=== PATIENT | male | born 1950 | race Caucasian/White ===

== ENCOUNTER → 2016-10-26 | Outpatient (CLI) | payer MEDICARE, OTHER | LOC: RAD 13:32 | PROVIDERS: ATTEND Specialist | DX: R22.1 Localized swelling, mass and lump, neck (principal); R91.1 Solitary pulmonary nodule | CPT/HCPCS: 70491; 71020 ==

== ENCOUNTER 2017-01-03 23:25 | Inpatient (IN) | payer MEDICARE, OTHER ==
[2017-01-04 00:10] LABS: VENOUS BLOOD BASE EXCESS 0.8 mmol/L; VENOUS BLOOD HCO3 25.7 mmol/L (20-32); VENOUS BLOOD PCO2 41.9 mmHg (35-63); VENOUS BLOOD PH 7.41 (7.30-7.42)
[2017-01-04] MEDS ORDERED: ACETAMINOPHEN 325 MG TABLET PO ONE (00:14)
[2017-01-04 00:19] LABS: PROTHROMBIN TIME 12.8 SEC (11.4-15.4)
[2017-01-04 00:24] LABS: ALANINE AMINOTRANSFERASE 51 U/L (21-72); ALBUMIN 4.8 g/dL (3.5-5.0); ALKALINE PHOSPHATASE 67 U/L (38-126); ANION GAP 15 (5-19); ASPARTATE AMINO TRANSFERASE 28 U/L (17-59); BILIRUBIN,TOTAL 0.7 mg/dL (0.2-1.3); BLOOD UREA NITROGEN 18 mg/dL (7-20); CALCIUM 10.4 mg/dL (8.4-10.2); CARBON DIOXIDE 24 mmol/L (22-30); CHLORIDE 105 mmol/L (98-107); CREATININE RESULT 1.02 mg/dL (0.52-1.25); GLUCOSE 184 mg/dL (75-110); SODIUM 144.2 mmol/L (137-145); TOTAL PROTEIN 8.1 g/dL (6.3-8.2)
[2017-01-04 00:25] LABS: ALCOHOL < 10 mg/dL (NONE DETECTED)
[2017-01-04] MEDS ORDERED: PIPERACILLIN/TAZOBACTAM 3.375 GM VIAL IV ONE (00:29)
[2017-01-04] MEDS ORDERED: METHYLPREDNISOLONE INJ 125 MG/2 ML SDV IV ONE (00:29)
[2017-01-04] MEDS ORDERED: VANCOMYCIN HCL INJ 1000 MG VIAL IV ONE (00:29)
--- NOTE | 2017-01-04 00:33 | ER Document Report ---
ED General - General Chief Complaint: Fever Stated Complaint: ALTERED MENTAL STATUS Time seen by provider: 00:01 Information source: Patient TRAVEL OUTSIDE OF THE [place] IN LAST 30 DAYS: No - HPI Notes: Patient with history of hypertension and diabetes presents to the emergency department with report of poison jairo exposure 10 days ago with significant skin rash, and he reports some worsening redness along the abdomen and the left leg. He started with fever today with some mild disorientation and generalized myalgias. He denies any cough, constipation, diarrhea, pharyngitis, earache, dysuria. Patient's recently had bronchitis, but the patient has not had any cough. Patient denies any headache. No chest pain or dyspnea. Patient is retired from healthcare profession, but does not have any history of MRSA previously. Patient denies any focal numbness or weakness, but was having trouble recalling some details upon arrival. - Related Data Allergies/Adverse Reactions: No Known Allergies Allergy (Verified 12/07/15 09:47) Past Medical History - General Information source: Patient - Social History Smoking Status: Current Every Day Smoker Family History: Reviewed & Not Pertinent Patient has suicidal ideation: No Patient has homicidal ideation: No - Past Medical History Cardiac Medical History: Reports: Hx Hypercholesterolemia, Hx Hypertension Endocrine Medical History: Reports: Hx Diabetes Mellitus Type 2 Renal/ Medical History: Denies: Hx Peritoneal Dialysis Psychiatric Medical History: Denies: Hx Depression - Immunizations Hx Diphtheria, Pertussis, Tetanus Vaccination: No Hx Pneumococcal Vaccination: 10/22/12 Review of Systems - Review of Systems Notes: REVIEW OF SYSTEMS: CONSTITUTIONAL : No weight loss EENT: Denies eye, ear, throat, or mouth pain or symptoms. Denies nasal or sinus congestion or discharge. Denies throat, tongue, or mouth swelling or difficulty swallowing. CARDIOVASCULAR: Denies chest pain. Denies palpitations or racing or irregular heart beat. Denies ankle edema. RESPIRATORY: Denies cough, cold, or chest congestion. Denies shortness of breath, difficulty breathing, or wheezing. GASTROINTESTINAL: Denies abdominal pain or distention. Denies nausea, vomiting , or diarrhea. Denies blood in vomitus, stools, or per rectum. Denies black, tarry stools. Denies constipation. GENITOURINARY: Denies difficulty urinating, painful urination, burning, frequency, blood in urine, or discharge. MUSCULOSKELETAL: Patient reports generalized myalgias. Denies joint pain or swelling. SKIN: Persistent rash that worsening for the last 10 days. HEMATOLOGIC : Denies easy bruising or bleeding. LYMPHATIC: Denies swollen, enlarged glands. NEUROLOGICAL: Denies passing out or loss of consciousness. Denies dizziness or lightheadedness. Denies headache. Denies weakness or paralysis or loss of use of either side. Denies problems with gait or speech. Denies sensory loss, numbness, or tingling. Denies seizures. PSYCHIATRIC: Denies anxiety or stress. Denies depression, suicidal ideation, or homicidal ideation. ALL OTHER SYSTEMS REVIEWED AND NEGATIVE. Dictation was performed using Rounds voice recognition software Physical Exam - Vital signs Vitals: Temp Pulse Resp BP Pulse Ox 99.8 F 129 H 16 189/101 H 93 01/03/17 23:35 01/03/17 23:35 01/03/17 23:35 01/03/17 23:35 01/03/17 23:35 - Notes Notes: PHYSICAL EXAMINATION: GENERAL: Well-appearing, well-nourished and in no acute distress. HEAD: Atraumatic, normocephalic. EYES: Pupils equal round and reactive to light, extraocular movements intact, sclera anicteric, conjunctiva are normal. ENT: Nares patent, oropharynx clear without exudates. Moist mucous membranes. NECK: Normal range of motion, supple without lymphadenopathy. No meningismus. LUNGS: Breath sounds clear to auscultation bilaterally and equal. No wheezes rales or rhonchi. HEART: Regular rhythm without murmurs. Rate 120. ABDOMEN: Soft, nontender, nondistended abdomen. No guarding, no rebound. No masses appreciated. Obese. Musculoskeletal: Normal range of motion, no pitting or edema. No cyanosis. NEUROLOGICAL: Cranial nerves grossly intact. Normal speech. Normal sensory, motor exams. Patient initially was somewhat confused on exam, as he knew the president but could not tell us which state he lived in a what the year was. PSYCH: Normal mood, normal affect. SKIN: Warm, Dry, normal turgor, patient has very obvious Toxicodendron dermatitis noted on the trunk and extremities. Patient has area of cellulitis noted on the abdominal region and possible cellulitis left leg, but there is no evidence for abscess or induration or subcutaneous emphysema or even tenderness in these locations. Distally patient is neurovascularly intact in the left lower extremity. Course - Re-evaluation Re-evalutation: 01/04/17 02:26 After Tylenol, the patient's temperature came down from 101.9 to 100.9. The patient was given IV fluid and after blood cultures patient was given vancomycin and Zosyn IV. Patient was given IV Solu-Medrol for Toxicodendron dermatitis. He denied any significant itching and was not given any Benadryl. Patient's pulse rate came down from a peak of 125 to 96 and his blood pressure improved to 146/73. Patient became more clear and alert and oriented. On repeat exam he could tell me the year, the president and his city and state. Patient's stated he was acting more coherent and alert. Patient and his are both in agreement with admission for further evaluation and management. No evidence for sepsis, but I am concerned for SIRS with patient's infection and mild elevation of lactic acid level to 2.2 and elevated white blood cell count. There is no clinical suggestion for abscess or significant diabetic complication or diabetic ketoacidosis or UTI or pneumonia or obvious cardiac ischemia or acute LA or meningitis. Discussion was undertaken with Dr. Toledo who agreed to accept the patient for admission and further evaluation to a inpatient telemetry bed. Critical care time not counting billable procedures is 38 minutes. 01/04/17 02:31 - Vital Signs Vital signs: Temp Pulse Resp BP Pulse Ox 100.9 F H 129 H 20 165/87 H 95 01/04/17 02:08 01/03/17 23:35 01/04/17 00:46 01/04/17 00:46 01/04/17 00:46 - Laboratory Result Diagrams: 01/03/17 23:55 01/03/17 23:55 Laboratory results interpreted by me: 01/03/17 01/03/17 01/03/17 23:54 23:55 23:55 WBC 23.6 H Seg Neuts % (Manual) 90 H Band Neutrophils % 2 L Lymphocytes % (Manual) 3 L Abs Neuts (Manual) 21.7 H Glucose 184 H POC Glucose 180 H Lactic Acid Calcium 10.4 H Urine Protein Urine Glucose (UA) Urine Blood 01/03/17 01/04/17 23:55 00:56 WBC Seg Neuts % (Manual) Band Neutrophils % Lymphocytes % (Manual) Abs Neuts (Manual) Glucose POC Glucose Lactic Acid 2.2 H Calcium Urine Protein 30 H Urine Glucose (UA) >=500 H Urine Blood SMALL H - Diagnostic Test Radiology reviewed: Reports reviewed - EKG Interpretation by Me EKG shows normal: Sinus rhythm Additional EKG results interpreted by me: 01/04/17 00:35 EKG as interpreted by me showed sinus tachycardia heart rate of 117. There is some lateral T-wave inversion in V6 and isolation. I cannot exclude ischemia. Patient does have minimal T-wave inversion also noted V1 and poor R-wave progression inferior Q waves in lead 3 and aVF, but this is unchanged from previous EKG reviewed from 12/08/15. There is no gross evidence for acute LA but I cannot exclude ischemia. Note the patient denies any chest pain. Discharge - Discharge Clinical Impression: Toxicodendron dermatitis Fever Qualifiers: Fever type: unspecified Qualified Code(s): R50.9 - Fever, unspecified Cellulitis Qualifiers: Site of cellulitis: trunk Site of cellulitis of trunk: abdominal wall Qualified Code(s): L03.311 - Cellulitis of abdominal wall Cellulitis of leg Qualifiers: Laterality: left Qualified Code(s): L03.116 - Cellulitis of left lower limb Condition: Stable Disposition: ADMITTED INPATIENT Admitting Provider: Hospitalist Unit Admitted: [facility]
[2017-01-04] MEDS ORDERED: NORMAL SALINE 1000 ML 1,000 ML IV ONE (00:34)
[2017-01-04 00:39] LABS: HEMATOCRIT 45.6 % (37.9-51.0); HEMOGLOBIN 15.4 g/dL (13.5-17.0); HGB HCT DIFFERENCE 0.6; MEAN CORPUSCULAR HEMOGLOBIN 31.6 pg (27.0-33.4); MEAN CORPUSCULAR HGB CONC 33.7 g/dL (32.0-36.0); MEAN CORPUSCULAR VOLUME 94 fl (80-97); RED BLOOD COUNT 4.87 10^6/uL (4.35-5.55); RED CELL DISTRIBUTION WIDTH 13.5 % (11.5-14.0); WHITE BLOOD COUNT 23.6 10^3/uL (4.0-10.5)
[2017-01-04 00:47] LABS: BAND NEUTROPHILS % (MANUAL) 2 % (3-5); BASOPHILS % (MANUAL) 0 % (0-2); EOSINOPHILS % (MANUAL) 2 % (0-6); LYMPHOCYTES % (MANUAL) 3 % (13-45); OVALOCYTES SLIGHT; POIKILOCYTOSIS SLIGHT; TOTAL CELLS COUNTED 100; TOXIC GRANULATION SLIGHT; TOXIC VACUOLATION PRESENT
[2017-01-04 01:55] LABS: APPEARANCE,URINE CLEAR; BILIRUBIN,URINE NEGATIVE (NEGATIVE); GLUCOSE, URINE >=500 mg/dL (NEGATIVE); KETONES,URINE NEGATIVE (NEGATIVE); LEUKOCYTE ESTERASE,URINE NEGATIVE (NEGATIVE); NITRITE,URINE NEGATIVE (NEGATIVE); PROTEIN,URINE 30 mg/dL (NEGATIVE); URINE SPECIFIC GRAVITY 1.029; UROBILINOGEN,URINE NEGATIVE mg/dL (<2.0)
[2017-01-04 01:57] LABS: URINE BARBITURATES SCREEN NEGATIVE; URINE METHADONE SCREEN NEGATIVE; URINE OPIATES LOW NEGATIVE; URINE PHENCYCLIDINE SCREEN NEGATIVE
[2017-01-04] MEDS ORDERED: ACETAMINOPHEN 325 MG TABLET PO PRN (02:27)
[2017-01-04] MEDS ORDERED: ONDANSETRON HCL INJ/PF 4 MG/2 ML SDV IV PRN (02:27)
[2017-01-04] MEDS ORDERED: DEXTROSE 50%-WATER 25 GM/50 ML DISP.SYRIN IV PRN ×2 (02:27)
[2017-01-04] MEDS ORDERED: DEXTROSE 40% GEL 15 GM TUBE PO PRN ×2 (02:27)
[2017-01-04] MEDS ORDERED: MAGNESIUM HYDROXIDE SUSP 30 ML UDCUP PO PRN (02:27)
[2017-01-04] MEDS ORDERED: GLUCAGON,HUMAN RECOMB 1 MG INJ IM PRN (02:27)
[2017-01-04] MEDS ORDERED: IPRATROPIUM/ALBUTEROL 0.5-2.5 MG/3 ML AMPUL NEB PRN (02:27)
[2017-01-04] MEDS ORDERED: ASPIRIN 325 MG TABLET, ENT COATED PO SCH (02:30)
[2017-01-04] MEDS ORDERED: ATORVASTATIN CALCIUM 40 MG TABLET PO SCH (02:30)
[2017-01-04] MEDS ORDERED: NORMAL SALINE 1000 ML 1,000 ML IV SCH (02:30)
[2017-01-04] MEDS ORDERED: INSULIN LISPRO 100 UNIT/ML 3 ML VIAL SUBCUT ONE (03:00)
[2017-01-04] MEDS ORDERED: CLONIDINE HCL 0.2 MG TABLET PO ONE ×2 (03:00→05:30)
[2017-01-04] MEDS ORDERED: ASPIRIN 325 MG TABLET, ENT COATED PO ONE ×2 (03:00→05:30)
[2017-01-04] MEDS ORDERED: ATORVASTATIN CALCIUM 40 MG TABLET PO ONE ×2 (03:00→05:30)
[2017-01-04] MEDS ORDERED: VANCOMYCIN HCL 0 MG in DEXTROSE 5%-WATER 250 ML IV NR (03:45)
[2017-01-04] MEDS ORDERED: PIPERACILLIN/TAZOBACTAM 4.5 GM VIAL IV PRN (04:16)
[2017-01-04] MEDS ORDERED: VANCOMYCIN HCL INJ 1000 MG VIAL IV PRN (04:37)
[2017-01-04] MEDS ORDERED: VANCOMYCIN HCL 1,750 MG in DEXTROSE 5%-WATER 500 ML IV ONE (05:00)
[2017-01-04 05:10] LABS: ANION GAP 14 (5-19); BLOOD UREA NITROGEN 18 mg/dL (7-20); CALCIUM 9.8 mg/dL (8.4-10.2); CARBON DIOXIDE 20 mmol/L (22-30); CHLORIDE 106 mmol/L (98-107); CREATINE KINASE 177 U/L (55-170); CREATININE RESULT 0.93 mg/dL (0.52-1.25); GLUCOSE 219 mg/dL (75-110); SODIUM 139.6 mmol/L (137-145)
[2017-01-04 05:20] LABS: CREATINE KINASE MB 1.85 ng/mL (<4.55); TROPONIN I 0.028 ng/mL
[2017-01-04 05:23] LABS: HEMOGLOBIN 14.9 g/dL (13.5-17.0); HGB HCT DIFFERENCE -0.3; MEAN CORPUSCULAR HEMOGLOBIN 31.1 pg (27.0-33.4); MEAN CORPUSCULAR HGB CONC 33.1 g/dL (32.0-36.0); MEAN CORPUSCULAR VOLUME 94 fl (80-97); RED BLOOD COUNT 4.79 10^6/uL (4.35-5.55); RED CELL DISTRIBUTION WIDTH 13.6 % (11.5-14.0); WHITE BLOOD COUNT 22.5 10^3/uL (4.0-10.5)
[2017-01-04 05:25] LABS: BAND NEUTROPHILS % (MANUAL) 2 % (3-5); BASOPHILS % (MANUAL) 0 % (0-2); EOSINOPHILS % (MANUAL) 0 % (0-6); LYMPHOCYTES % (MANUAL) 7 % (13-45); TOTAL CELLS COUNTED 100
[2017-01-04 05:28] LABS: POLYCHROMASIA SLIGHT; TEAR DROP CELLS SLIGHT; TOXIC GRANULATION SLIGHT; TOXIC VACUOLATION PRESENT
[2017-01-04] MEDS: PIPERACILLIN SODIUM/TAZOBACTAM 4.5 GM in NORMAL SALINE 100 ML IV SCH ×3 (05:45→17:07)
[2017-01-04] MEDS ORDERED: CLONIDINE HCL 0.2 MG TABLET PO SCH (06:00)
[2017-01-04] MEDS ORDERED: HEPARIN SOD (PORCINE) 5,000 UNIT/ML 1 ML SYRINGE SUBCUT SCH (06:00)
--- NOTE | 2017-01-04 06:30 | PDOC H&P ---
History of Present Illness Admission Date/PCP: 01/04/17 02:28 SHANIQUE CAMARA DO Patient complains of: Fever and altered mental status History of Present Illness: CLEMENTE BROTHERS is a 66 year old male with a past medical history of moderate diastolic heart failure, moderate aortic regurgitation, diabetes, hypertension, Morbid obesity, obstructive sleep apnea and prostate cancer. Who gives a history of possible poison jairo exposure with painful rash approximately 10 days ago which initially involved his left leg but now involves all 4 extremities, abdominal wall, chest and groin, he sought treatment with primary care and was prescribed an unknown topical medication and hydroxyzine without improvement and over the last 6 hours has developed marketed fever of 103.0, myalgia and confusion. He remains somewhat confused his is at bedside and provides history. Including doubts overexposure to poison jairo as she was in the same area without development of rash. Patient denies another exposure to irritant or previous episode nor new medication prior to onset. He otherwise complains of abdominal pain and distention and denies headache nausea vomiting or stiff neck or photophobia. Past Medical History Cardiac Medical History: Reports: Congestive Heart Failure - Diastolic, Hyperlipidema, Hypertension Pulmonary Medical History: Reports: Sleep Apnea EENT Medical History: Reports: None Neurological Medical History: Reports: None Endocrine Medical History: Reports: Diabetes Mellitus Type 2, Obesity Renal/ Medical History: Reports: None Malignancy Medical History: Reports: Other - Prostate cancer GI Medical History: Reports: None Musculoskeltal Medical History: Reports: None Skin Medical History: Reports: None Psychiatric Medical History: Reports: None Denies: Depression Traumatic Medical History: Reports: None Hematology: Reports: None Infectious Medical History: Reports: None Past Surgical History Past Surgical History: Reports: Other - Radical prostatectomy approximately 5 years ago Social History Information Source: Patient, Relative Lives with: Spouse/Significant other Smoking Status: Current Every Day Smoker Cigars Per Day: 1 Frequency of Alcohol Use: None Hx Recreational Drug Use: No Hx Prescription Drug Abuse: No - Advance Directive Resuscitation Status: Full Code Family History Family History: CAD, DM, Malignancy - Breast cancer in mother Parental Family History Reviewed: Yes Children Family History Reviewed: Yes Sibling(s) Family History Reviewed.: Yes Medication/Allergy Home Medications: Carvedilol [Coreg 25 mg Tablet] 25 tab PO Q12 12/07/15 Atorvastatin Calcium [Lipitor 80 mg Tablet] 40 mg PO QHS tablet 12/08/15 Aspirin [Aspirin EC] 81 mg PO DAILY 01/04/17 Canagliflozin/Metformin HCl [Invokamet 150-1,000 mg Tablet] 1 tab PO BID Ferrous Sulfate 324 mg PO DAILY 01/04/17 Ginkgo Biloba 120 mg PO DAILY 01/04/17 Hydroxyzine HCl [Hydroxyzine HCl] 25 mg PO QIDP PRN 01/04/17 Insulin Glargine,Hum.rec.anlog [Lantus Insulin 100 Unit/1 ml 10 ml] 40 unit SUBCUT QAM 01/04/17 Mirabegron [Myrbetriq] 25 mg PO DAILY 01/04/17 Sitagliptin Phosphate [Januvia] 100 mg PO DAILY 01/04/17 Spironolactone [Spironolactone] 25 mg PO DAILY 01/04/17 Triamcinolone Acetonide [Aristocort 0.1% Cream 15 gm] 1 applic TP BID PRN Valsartan [Valsartan] 320 mg PO DAILY 01/04/17 Allergies/Adverse Reactions: No Known Allergies Allergy (Verified 12/07/15 09:47) Review of Systems Constitutional: PRESENT: as per HPI, fatigue, fever(s), night sweats, weakness. ABSENT: headache(s) Eyes: ABSENT: visual disturbances Ears: ABSENT: hearing changes Cardiovascular: ABSENT: chest pain, dyspnea on exertion, edema, orthropnea, palpitations Respiratory: ABSENT: cough, hemoptysis, sputum Gastrointestinal: PRESENT: abdominal pain, bloating, constipation, heartburn, nausea. ABSENT: coffee ground emesis, diarrhea, dysphagia, hematemesis, hematochezia, vomiting Genitourinary: ABSENT: dysuria, hematuria Musculoskeletal: ABSENT: joint swelling Integumentary: PRESENT: erythema, lesions, pruritus, rash Neurological: ABSENT: abnormal gait, abnormal speech, confusion, dizziness, focal weakness, syncope Psychiatric: ABSENT: anxiety, depression, homidical ideation, suicidal ideation Endocrine: ABSENT: cold intolerance, heat intolerance, polydipsia, polyuria Hematologic/Lymphatic: ABSENT: easy bleeding, easy bruising Allergic/Immunologic: PRESENT: as per HPI Physical Exam Vital Signs: Temp Pulse Resp BP Pulse Ox 100.9 F H 129 H 20 168/87 H 96 01/04/17 02:08 01/03/17 23:35 01/04/17 03:31 01/04/17 03:31 01/04/17 03:31 General appearance: PRESENT: cooperative, disheveled, mild distress, morbidly obese Head exam: PRESENT: atraumatic, normocephalic Eye exam: PRESENT: conjunctiva pink, EOMI, PERRLA. ABSENT: scleral icterus Ear exam: PRESENT: normal external ear exam Mouth exam: PRESENT: moist, tongue midline Neck exam: PRESENT: full ROM. ABSENT: carotid bruit, JVD, lymphadenopathy, meningismus, tenderness, thyromegaly, tracheal deviation Respiratory exam: PRESENT: clear to auscultation maryellen, symmetrical. ABSENT: rales, rhonchi, wheezes Cardiovascular exam: PRESENT: RRR, +S1, +S2, systolic murmur. ABSENT: diastolic murmur, rubs Pulses: PRESENT: normal dorsalis pedis pul GI/Abdominal exam: PRESENT: ascites, diminished bowel sounds, distended, hypoactive bowel sounds, soft, tenderness. ABSENT: guarding, hernia, Kelley's sign, rebound, rigid Rectal exam: PRESENT: deferred Extremities exam: PRESENT: tenderness. ABSENT: joint swelling, pedal edema, +1 edema Musculoskeletal exam: PRESENT: ambulatory, full ROM. ABSENT: deformity, dislocation Neurological exam: PRESENT: alert, altered, awake, oriented to person, CN II- XII grossly intact. ABSENT: oriented to place, oriented to time, oriented to situation, motor sensory deficit, aphasic Psychiatric exam: PRESENT: appropriate affect, normal mood. ABSENT: homicidal ideation, suicidal ideation Skin exam: PRESENT: erythema, intact, petechiae, rash, warm. ABSENT: vesicles Adult Front & Back Image: 1 - Tender papules and petechiae 2 - Tender papules and petechiae 3 - Tender papules and petechiae 4 - Tender papules and petechiae 5 - Tender papules and petechiae 6 - Eruptive seborrheic keratosis Results Laboratory Results: 01/04/17 04:20 01/04/17 04:20 01/04/17 01/04/17 01/04/17 04:20 04:20 04:20 WBC 22.5 H RBC 4.79 Hgb 14.9 Hct 45.0 MCV 94 MCH 31.1 MCHC 33.1 RDW 13.6 Plt Count 200 Seg Neutrophils % Not Reportable Lymphocytes % Not Reportable Monocytes % Not Reportable Eosinophils % Not Reportable Basophils % Not Reportable Absolute Neutrophils Not Reportable Absolute Lymphocytes Not Reportable Absolute Monocytes Not Reportable Absolute Eosinophils Not Reportable Absolute Basophils Not Reportable Sodium 139.6 Potassium 5.0 Chloride 106 Carbon Dioxide 20 L Anion Gap 14 BUN 18 Creatinine 0.93 Est GFR ( Amer) > 60 Est GFR (Non-Af Amer) > 60 Glucose 219 H Lactic Acid 2.4 H Calcium 9.8 01/04/17 01/04/17 04:20 04:20 Creatine Kinase 177 H CK-MB (CK-2) 1.85 Troponin I 0.028 Impressions: Chest X-Ray 01/04/17 00:26 IMPRESSION: No acute findings. Assessment & Plan - Diagnosis (1) Sweet's syndrome Is this a current diagnosis for this admission?: YesPlan: Possibly triggered by poison jairo exposure notable for painful acute acute rash with febrile neutrophilic presentation, concern for underlying malignancy given family history and tobacco dependence, will obtain a lap score and CT imaging of chest and abdomen for underlying solid malignancy. Will initiate systemic steroids following evaluation as abdominal wall cellulitis is in the differential. (2) Diabetes 1.5, managed as type 2 Is this a current diagnosis for this admission?: YesPlan: Home regiment with sliding scale insulin (3) Morbid obesity with BMI of 40.0-44.9, adult Is this a current diagnosis for this admission?: YesPlan: Obtain TSH and dietitian consult (4) Cellulitis Qualifiers: Site of cellulitis: trunk Site of cellulitis of trunk: abdominal wall Qualified Code(s): L03.311 - Cellulitis of abdominal wall Is this a current diagnosis for this admission?: YesPlan: Extensive areas of severe painful dermatitis suggestive of both Sweet's syndrome and cellulitis have replaced on vancomycin and Zosyn empirically with follow-up labs and culture (5) Altered mental status Qualifiers: Altered mental status type: unspecified Qualified Code(s): R41.82 - Altered mental status, unspecified Is this a current diagnosis for this admission?: YesPlan: Acute encephalopathy possibly secondary to febrile illness versus hypertensive urgency, Sweet syndrome versus concurrent hydroxyzine with Benadryl use (6) Hypertensive emergency Is this a current diagnosis for this admission?: YesPlan: Presenting with a blood pressure of 212/109 Likely related to pain versus acute febrile illness he'll receive symptomatic management Lopressor, VINCENT inhibitor, when necessary clonidine. (7) Hypercalcemia Is this a current diagnosis for this admission?: YesPlan: Unclear cause concerned for underlying malignancy, hydration and reevaluation of chemistry (8) Abdominal pain Qualifiers: Abdominal location: generalized Qualified Code(s): R10.84 - Generalized abdominal pain Is this a current diagnosis for this admission?: YesPlan: Abdominal distention noted over 2 months associated with diffuse pain, denying constipation, concern for underlying malignancy given hypercalcemia, tobacco, family history and presentation suggestive of Sweet syndrome. Symptomatically management and CT evaluation ordered - Time Time Spent: 50 to 70 Minutes
[2017-01-04] MEDS ORDERED: LACTULOSE SYRUP 20 GM/30 ML UDCUP PO ONE (06:45)
[2017-01-04] MEDS ORDERED: INFLUENZA ADLT QUAD (36MOS+) 2016-17 VAC 0.5 ML SYR IM PRN (08:10)
[2017-01-04] MEDS: DOCUSATE SODIUM 100 MG CAPSULE PO SCH ×2 (09:10→17:09)
[2017-01-04] MEDS: CARVEDILOL 12.5 MG TABLET PO SCH ×2 (09:10→22:12)
[2017-01-04] MEDS: METFORMIN HCL 500 MG TABLET PO SCH ×2 (09:10→16:07)
[2017-01-04] MEDS: ASPIRIN 325 MG TABLET, ENT COATED PO SCH (09:10)
[2017-01-04] MEDS: VALSARTAN 160 MG TABLET PO SCH (09:11)
--- NOTE | 2017-01-04 11:16 | EKG REPORT ---
SEVERITY:- ABNORMAL ECG - SINUS OR ECTOPIC ATRIAL TACHYCARDIA PROBABLE INFERIOR INFARCT, OLD ABNRM R PROG, CONSIDER ASMI OR LEAD PLACEMENT LATERAL LEADS ARE ALSO INVOLVED : Confirmed by: Benita Paul 04-Jan-2017 11:15:49
[2017-01-04] MEDS: INSULIN LISPRO 100 UNIT/ML 3 ML VIAL SUBCUT PRN ×2 (11:32→17:11)
[2017-01-04 11:48] LABS: CREATINE KINASE MB 2.35 ng/mL (<4.55); TROPONIN I 0.013 ng/mL
[2017-01-04] MEDS: VANCOMYCIN HCL 1,000 MG in DEXTROSE 5%-WATER 250 ML IV SCH ×2 (13:28→18:07)
[2017-01-04] MEDS ORDERED: (PENDING PHARMACY ID) (Mirabegron [Myrbetriq] 25 MG) PO SCH (16:00)
[2017-01-04] MEDS ORDERED: HYDRALAZINE HCL INJ/PF 20 MG/1 ML SDV IV PRN (18:14)
[2017-01-04] MEDS ORDERED: AMLODIPINE BESYLATE 5 MG TABLET PO ONE (18:30)
[2017-01-04 18:31] LABS: CREATINE KINASE MB 3.27 ng/mL (<4.55); TROPONIN I 0.013 ng/mL
[2017-01-04] MEDS ORDERED: CARVEDILOL 12.5 MG TABLET PO SCH (22:00)
[2017-01-04] MEDS ORDERED: CARVEDILOL PO SCH (22:00)
[2017-01-04] MEDS: AMLODIPINE BESYLATE 5 MG TABLET PO SCH (22:11)
[2017-01-04] MEDS: ATORVASTATIN CALCIUM 40 MG TABLET PO SCH (22:12)
[2017-01-05] MEDS: PIPERACILLIN SODIUM/TAZOBACTAM 4.5 GM in NORMAL SALINE 100 ML IV SCH ×4 (00:57→17:08)
[2017-01-05] MEDS: VANCOMYCIN HCL 1,000 MG in DEXTROSE 5%-WATER 250 ML IV SCH ×3 (03:38→20:19)
[2017-01-05 07:11] LABS: ABSOLUTE BASOPHILS # (AUTO) 0.1 10^3/uL (0.0-0.2); ABSOLUTE EOSINOPHILS # (AUTO) 0.9 10^3/uL (0.0-0.6); ABSOLUTE LYMPHOCYTES (AUTO) 3.7 10^3/uL (0.5-4.7); ABSOLUTE MONOCYTES (AUTO) 1.2 10^3/uL (0.1-1.4); ABSOLUTE NEUT (AUTO) 9.8 10^3/uL (1.7-8.2); BASOPHILS % (AUTO) 0.7 % (0-2); EOSINOPHILS % (AUTO) 5.5 % (0-6); LYMPHOCYTES % (AUTO) 23.4 % (13-45); MEAN CORPUSCULAR HEMOGLOBIN 31.6 pg (27.0-33.4); MEAN CORPUSCULAR HGB CONC 33.5 g/dL (32.0-36.0); MEAN CORPUSCULAR VOLUME 94 fl (80-97); MONOCYTES % (AUTO) 7.7 % (3-13); RED BLOOD COUNT 4.45 10^6/uL (4.35-5.55); RED CELL DISTRIBUTION WIDTH 13.9 % (11.5-14.0); SEGMENTED NEUTROPHILS % (AUTO) 62.7 % (42-78); WHITE BLOOD COUNT 15.6 10^3/uL (4.0-10.5)
[2017-01-05 07:36] LABS: ANION GAP 14 (5-19); BLOOD UREA NITROGEN 24 mg/dL (7-20); CALCIUM 9.6 mg/dL (8.4-10.2); CARBON DIOXIDE 22 mmol/L (22-30); CHLORIDE 103 mmol/L (98-107); CREATININE RESULT 0.97 mg/dL (0.52-1.25); GLUCOSE 155 mg/dL (75-110); POTASSIUM 4.4 mmol/L (3.6-5.0); SODIUM 139.3 mmol/L (137-145)
[2017-01-05] MEDS ORDERED: (PENDING PHARMACY ID) (Valsartan [Valsartan] 320 MG) PO SCH (10:00)
[2017-01-05] MEDS ORDERED: VALSARTAN 160 MG TABLET PO SCH (10:00)
[2017-01-05] MEDS ORDERED: (PENDING PHARMACY ID) (Ferrous Sulfate [Ferrous Sulfate] 324 MG) PO SCH (10:00)
[2017-01-05] MEDS ORDERED: (PENDING PHARMACY ID) (Clonidine Hcl [Catapres 0.3 Mg Tablet] 0.3 MG) PO SCH (10:00)
[2017-01-05] MEDS ORDERED: CLONIDINE HCL 0.2 MG PO SCH (10:00)
[2017-01-05] MEDS ORDERED: (PENDING PHARMACY ID) (Mirabegron [Myrbetriq] 25 MG) PO SCH (10:00)
[2017-01-05] MEDS: CARVEDILOL 12.5 MG TABLET PO SCH ×2 (10:22→21:57)
[2017-01-05] MEDS: VALSARTAN 160 MG TABLET PO SCH (10:24)
[2017-01-05] MEDS: METFORMIN HCL 500 MG TABLET PO SCH ×2 (10:24→17:07)
[2017-01-05] MEDS: PREDNISONE 20 MG TABLET PO SCH (10:24)
[2017-01-05] MEDS: FERROUS SULFATE 325 MG TABLET PO SCH (10:25)
[2017-01-05] MEDS: CLONIDINE HCL 0.2 MG TABLET PO SCH ×2 (10:25→21:57)
[2017-01-05] MEDS: ASPIRIN 325 MG TABLET, ENT COATED PO SCH (10:25)
[2017-01-05] MEDS: DOCUSATE SODIUM 100 MG CAPSULE PO SCH ×2 (10:25→17:08)
[2017-01-05] MEDS: AMLODIPINE BESYLATE 5 MG TABLET PO SCH ×2 (10:26→21:56)
--- NOTE | 2017-01-05 12:00 | PDOC PROGRESS REPORT ---
Subjective Progress Note for:: 01/05/17 Subjective:: Patient is feeling well ; he has no fever no chills no headache lightheadedness The expressive aphasia has improved He has no focal deficits otherwise and is ambulating freely The rash on his upper and lower extremities is still persistent Physical Exam Vital Signs: Temp Pulse Resp BP Pulse Ox 97.6 F 79 16 178/87 H 97 01/05/17 07:47 01/05/17 11:03 01/05/17 11:03 01/05/17 07:47 01/05/17 11:03 Intake & Output 01/04/17 01/05/17 01/06/17 00:59 00:59 00:59 Intake Total 1533 1370 Balance 1533 1370 Weight 112.4 kg 112.2 kg General appearance: PRESENT: no acute distress, well-developed, well-nourished Head exam: PRESENT: atraumatic, normocephalic Eye exam: PRESENT: conjunctiva pink, EOMI, PERRLA. ABSENT: scleral icterus Ear exam: PRESENT: normal external ear exam Mouth exam: PRESENT: moist, tongue midline Neck exam: ABSENT: carotid bruit, JVD, lymphadenopathy, thyromegaly Respiratory exam: PRESENT: clear to auscultation maryellen. ABSENT: rales, rhonchi, wheezes Cardiovascular exam: PRESENT: RRR. ABSENT: diastolic murmur, rubs, systolic murmur Pulses: PRESENT: normal dorsalis pedis pul Vascular exam: PRESENT: normal capillary refill GI/Abdominal exam: PRESENT: normal bowel sounds, soft. ABSENT: distended, guarding, mass, organolmegaly, rebound, tenderness Rectal exam: PRESENT: deferred Extremities exam: PRESENT: full ROM. ABSENT: calf tenderness, clubbing, pedal edema Neurological exam: PRESENT: alert, awake, oriented to person, oriented to place , oriented to time, oriented to situation, CN II-XII grossly intact. ABSENT: motor sensory deficit Psychiatric exam: PRESENT: appropriate affect, normal mood. ABSENT: homicidal ideation, suicidal ideation Skin exam: PRESENT: dry, intact, petechiae - Petechial rash over the both shins and antecubital areas upper extremities extending to the hand, warm. ABSENT: cyanosis, rash Results Laboratory Results: 01/05/17 06:16 01/05/17 06:16 01/04/17 01/05/17 01/05/17 11:07 06:16 06:16 WBC 15.6 H RBC 4.45 Hgb 14.0 Hct 42.0 MCV 94 MCH 31.6 MCHC 33.5 RDW 13.9 Plt Count 200 Seg Neutrophils % 62.7 Lymphocytes % 23.4 Monocytes % 7.7 Eosinophils % 5.5 Basophils % 0.7 Absolute Neutrophils 9.8 H Absolute Lymphocytes 3.7 Absolute Monocytes 1.2 Absolute Eosinophils 0.9 H Absolute Basophils 0.1 Sodium 139.3 Potassium 4.4 Chloride 103 Carbon Dioxide 22 Anion Gap 14 BUN 24 H Creatinine 0.97 Est GFR ( Amer) > 60 Est GFR (Non-Af Amer) > 60 Glucose 155 H Calcium 9.6 C-Reactive Protein 58.8 H 01/04/17 01/04/17 01/04/17 04:20 04:20 11:07 Creatine Kinase 177 H 156 CK-MB (CK-2) 1.85 Troponin I 0.028 01/04/17 01/04/17 01/04/17 11:07 17:50 17:50 Creatine Kinase 326 H CK-MB (CK-2) 2.35 3.27 Troponin I 0.013 0.013 Impressions: Abdomen/Pelvis CT 01/04/17 00:00 IMPRESSION: No acute or suspicious findings. 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 Stable extensive hemispheric white matter disease. Punctate focus of altered diffusion in the left posterior frontal white matter on diffusion image 23, likely a tiny acute infarct. Unremarkable [place] MRA Chest CT 01/04/17 00:00 IMPRESSION: No acute or suspicious findings. Chest X-Ray 01/04/17 00:26 IMPRESSION: No acute findings. Head CT 01/04/17 11:26 IMPRESSION: Extensive white matter disease No acute parenchymal hemorrhage. No CT evidence of acute large territory ischemic change. 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 Stable extensive hemispheric white matter disease. Punctate focus of altered diffusion in the left posterior frontal white matter on diffusion image 23, likely a tiny acute infarct. Unremarkable [place] MRA Assessment & Plan - Diagnosis (1) Leukocytosis Qualifiers: Leukocytosis type: unspecified Qualified Code(s): D72.829 - Elevated white blood cell count, unspecified Is this a current diagnosis for this admission?: YesPlan: Improvement of leukocytosis Leukocytosis may be secondary to Sirs Patient did have a fever and high lactic acid Source of infection is unknown Several blood cultures were drawn Patient is still on broad-spectrum antibiotic (2) CVA (cerebral vascular accident) Qualifiers: Laterality of affected vessel: unspecified Is this a current diagnosis for this admission?: YesPlan: MRI showed prompt punctate 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 Espinoza, and films were reviewed by neuroradiologist at [facility] Dr. Erik Valencia felt that these findings are likely to be related to uncontrolled hypertension rather than vasculitis (3) Vasculitis Is this a current diagnosis for this admission?: YesPlan: Vasculitis is suspected as patient came in fever purpuric rash, an MRI of the head suspicious for vasculitis We initiated a workup Prednisone 60 mg daily was prescribed (4) Expressive aphasia Is this a current diagnosis for this admission?: YesPlan: Has improved (5) Hypertensive emergency Is this a current diagnosis for this admission?: YesPlan: Patient does have accelerated hypertension We will resume his home meds, and we will try to maintain his blood pressure below 160 systolic - Time Time Spent with patient: Were planning to keep the patient in the hospital for another 2448 hrs. until blood pressure is stable, and results of the cultures are available Time Spent with patient: 25-34 minutes
[2017-01-05 12:12] LABS: ADD HIVPANEL? NO; HIV (1 AND 2) ANTIBODY NEGATIVE (NEGATIVE)
--- NOTE | 2017-01-05 17:04 | XCELERA REPORT ---
[address] [address] Transthoracic Echocardiogram Report Name: CLEMENTE BROTHERS Age: 66 yrs Gender: Male : 1950 Patient Status: Inpatient Patient Location: [id number]\S\329\S\A Study Date: 01/05/2017 02:41 PM Height: 66 in Weight: 247 lb BSA: 2.2 m2 Procedure: A complete two-dimensional transthoracic echocardiogram was performed (2D, M-mode, spectral and color flow Doppler). The study was technically adequate with some images being suboptimal in quality. Reason For Study: fever CVA R/O SBE Ordering Physician: OLIVER RAMSEY Performed By: Evangelista Cobb Interpretation Summary The left ventricular ejection fraction is normal. There is moderate concentric left ventricular hypertrophy. Doppler measurements suggest pseudonormalized left ventricular relaxation, which is associated with grade II/IV or mild to moderate diastolic dysfunction The left ventricle is grossly normal size. Wall motion cannot be accurately commented on, but no definite regional wall motion abnormalities noted. The right ventricle is grossly normal size. The right ventricular systolic function is normal. The right atrium is borderline dilated. The left atrium is moderately dilated. There is a trace to mild amount of mitral regurgitation There is no mitral valve stenosis. There is no aortic valve stenosis There is a mild amount of aortic regurgitation There is a trace to mild amount of tricuspid regurgitation There is mild pulmonary hypertension by echo Right ventricular systolic pressure is estimated to be elevated at 30- 40mmHg. The aortic root is not well visualized but is probably normal size. The inferior vena cava appeared dilated and decreased < 50% with respiration (RAP 15-20 mmHg) Small pericardial effusion. MMode/2D Measurements \T\ Calculations RVDd: 3.1 cm LVIDd: 4.9 cm FS: 44.0 % Ao root diam: 3.0 cm IVSd: 1.5 cm LVIDs: 2.7 cm EDV(Teich): 112.8 ml LVPWd: 1.6 cm ESV(Teich): 28.2 ml Ao root area: 7.0 cm2 EF(Teich): 75.0 % LA dimension: 4.3 cm Doppler Measurements \T\ Calculations MV E max luli: MV P1/2t max luli: Ao V2 max: AI max luli: 51.5 cm/sec 53.3 cm/sec 164.2 cm/sec 347.5 cm/sec MV A max luli: MV P1/2t: 58.7 msec Ao max PG: AI max P.4 cm/sec 10.8 mmHg 48.3 mmHg MV E/A: 0.55 MVA(P1/2t): 3.7 cm2 AI dec slope: MV dec slope: 265.7 cm/sec2 191.6 cm/sec2 AI P1/2t: 531.3 msec LV V1 max PG: PA V2 max: PI end-d luli: TR max luli: 6.0 mmHg 85.4 cm/sec 111.8 cm/sec 232.9 cm/sec LV V1 max: PA max P.9 mmHg TR max P.8 cm/sec 21.7 mmHg RVSP(TR): 31.7 mmHg RAP systole: 10.0 mmHg Left Ventricle The left ventricle is grossly normal size. There is moderate concentric left ventricular hypertrophy. The left ventricular ejection fraction is normal. Doppler measurements suggest pseudonormalized left ventricular relaxation, which is associated with grade II/IV or mild to moderate diastolic dysfunction. Wall motion cannot be accurately commented on, but no definite regional wall motion abnormalities noted. Right Ventricle The right ventricle is grossly normal size. There is normal right ventricular wall thickness. The right ventricular systolic function is normal. Atria The right atrium is borderline dilated. The left atrium is moderately dilated. Interarterial septum not well visualized and not well dopplered. Cannot comment on ASD/PFO presence. Mitral Valve The mitral valve is grossly normal. There is no mitral valve stenosis. There is a trace to mild amount of mitral regurgitation. Aortic Valve The aortic valve is mildly calcified. There is no aortic valve stenosis. There is a mild amount of aortic regurgitation. Tricuspid Valve The tricuspid valve is not well visualized, but is grossly normal. There is no tricuspid stenosis. There is a trace to mild amount of tricuspid regurgitation. There is mild pulmonary hypertension by echo. Right ventricular systolic pressure is estimated to be elevated at 30-40mmHg. Pulmonic Valve The pulmonic valve is not well visualized. Great Vessels The aortic root is not well visualized but is probably normal size. The inferior vena cava appeared dilated and decreased < 50% with respiration (RAP 15-20 mmHg). Effusions Small pericardial effusion. Incidental Findings No definite cardiac source of CVA/TIA noted on this particular trans- thoracic study. : OLIVER RAMSEY > Benita Paul
[2017-01-05] MEDS: INSULIN LISPRO 100 UNIT/ML 3 ML VIAL SUBCUT PRN ×2 (17:09→21:52)
[2017-01-05] MEDS: ATORVASTATIN CALCIUM 40 MG TABLET PO SCH (21:56)
[2017-01-06] MEDS: PIPERACILLIN SODIUM/TAZOBACTAM 4.5 GM in NORMAL SALINE 100 ML IV SCH ×3 (00:46→12:30)
[2017-01-06] MEDS: VANCOMYCIN HCL 1,000 MG in DEXTROSE 5%-WATER 250 ML IV SCH ×2 (03:18→10:50)
[2017-01-06 06:04] LABS: ABSOLUTE BASOPHILS # (AUTO) 0.1 10^3/uL (0.0-0.2); ABSOLUTE EOSINOPHILS # (AUTO) 0.6 10^3/uL (0.0-0.6); ABSOLUTE LYMPHOCYTES (AUTO) 3.3 10^3/uL (0.5-4.7); ABSOLUTE NEUT (AUTO) 8.1 10^3/uL (1.7-8.2); BASOPHILS % (AUTO) 0.4 % (0-2); EOSINOPHILS % (AUTO) 4.8 % (0-6); HEMATOCRIT 39.1 % (37.9-51.0); HEMOGLOBIN 13.3 g/dL (13.5-17.0); HGB HCT DIFFERENCE 0.8; LYMPHOCYTES % (AUTO) 25.5 % (13-45); MEAN CORPUSCULAR HEMOGLOBIN 31.7 pg (27.0-33.4); MEAN CORPUSCULAR HGB CONC 33.9 g/dL (32.0-36.0); MEAN CORPUSCULAR VOLUME 94 fl (80-97); MONOCYTES % (AUTO) 7.8 % (3-13); RED BLOOD COUNT 4.18 10^6/uL (4.35-5.55); RED CELL DISTRIBUTION WIDTH 13.5 % (11.5-14.0); SEGMENTED NEUTROPHILS % (AUTO) 61.5 % (42-78); WHITE BLOOD COUNT 13.1 10^3/uL (4.0-10.5)
[2017-01-06 06:23] LABS: ANION GAP 13 (5-19); BLOOD UREA NITROGEN 24 mg/dL (7-20); CALCIUM 9.4 mg/dL (8.4-10.2); CARBON DIOXIDE 23 mmol/L (22-30); CHLORIDE 102 mmol/L (98-107); CREATININE RESULT 0.91 mg/dL (0.52-1.25); GLUCOSE 171 mg/dL (75-110); POTASSIUM 4.4 mmol/L (3.6-5.0); SODIUM 138.3 mmol/L (137-145)
[2017-01-06 06:39] LABS: HEPATITIS C VIRUS AB <0.1 s/co ratio (0.0-0.9)
[2017-01-06] MEDS: FERROUS SULFATE 325 MG TABLET PO SCH (08:17)
[2017-01-06] MEDS: VALSARTAN 160 MG TABLET PO SCH (08:17)
[2017-01-06] MEDS: METFORMIN HCL 500 MG TABLET PO SCH (08:17)
[2017-01-06] MEDS: CLONIDINE HCL 0.2 MG TABLET PO SCH (08:18)
[2017-01-06] MEDS: ASPIRIN 325 MG TABLET, ENT COATED PO SCH (08:18)
[2017-01-06] MEDS: CARVEDILOL 12.5 MG TABLET PO SCH (08:18)
[2017-01-06] MEDS: DOCUSATE SODIUM 100 MG CAPSULE PO SCH (08:18)
[2017-01-06] MEDS: PREDNISONE 20 MG TABLET PO SCH (08:19)
[2017-01-06] MEDS: AMLODIPINE BESYLATE 5 MG TABLET PO SCH (08:19)
[2017-01-06] MEDS ORDERED: HYDRALAZINE HCL 50 MG TABLET PO ONE (12:00)
[2017-01-06 12:25] VITALS: BP 135/78
[2017-01-06] MEDS: INSULIN LISPRO 100 UNIT/ML 3 ML VIAL SUBCUT PRN (12:30)
--- NOTE | 2017-01-06 15:29 | PDOC DISCHARGE SUMMARY ---
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 Espinoza, and films were reviewed by neuroradiologist at [facility] Dr. Erik Valencia felt that these findings are likely to be related to uncontrolled hypertension rather than vasculitis (3) Vasculitis Is this a current diagnosis for this admission?: YesSummary: Patient had a petechial rash upper lower extremities non pruritic suggestive of vasculitis rash faded with steroids Patient was discharged on prednisone po (4) Expressive aphasia Is this a current diagnosis for this admission?: YesSummary: likely related to CVA has improved (5) Hypertensive emergency Is this a current diagnosis for this admission?: YesSummary: blood pressure was controlled at time of discharge we added Hydralazine 50 mg q12 to previous meds (6) Fever Is this a current diagnosis for this admission?: YesSummary: etiology unknown - resolved no focus of infection all blood cultures were negative Patient was initially treated with broad spectum antibiotics - Additional Information Resuscitation Status: Full Code Home Medications: Carvedilol [Coreg 25 mg Tablet] 25 tab PO Q12 12/07/15 Atorvastatin Calcium [Lipitor 80 mg Tablet] 40 mg PO QHS tablet 12/08/15 Aspirin [Aspirin EC] 81 mg PO DAILY 01/04/17 Canagliflozin/Metformin HCl [Invokamet 150-1,000 mg Tablet] 1 tab PO BID Clonidine HCl [Catapres 0.3 mg Tablet] 0.3 mg PO DAILY 01/04/17 Ferrous Sulfate 324 mg PO DAILY 01/04/17 Furosemide [Lasix] 40 mg PO DAILY 01/04/17 Ginkgo Biloba 120 mg PO DAILY 01/04/17 Hydroxyzine HCl 25 mg PO QIDP PRN 01/04/17 Insulin Glargine,Hum.rec.anlog [Lantus Insulin 100 Unit/1 ml 10 ml] 40 unit SUBCUT QAM 01/04/17 Mirabegron [Myrbetriq] 25 mg PO DAILY 01/04/17 Sitagliptin Phosphate [Januvia] 100 mg PO DAILY 01/04/17 Spironolactone 25 mg PO DAILY 01/04/17 Triamcinolone Acetonide [Aristocort 0.1% Cream] 1 applic TP BID PRN 01/04/17 Valsartan 320 mg PO DAILY 01/04/17 Clonidine HCl [Catapres 0.2 mg Tablet] 0.2 mg PO Q12 #60 tablet 01/06/17 Hydralazine HCl [Apresoline 50 mg Tablet] 50 mg PO Q12 #60 tablet 01/06/17 Prednisone [Deltasone 20 mg Tablet] 60 mg PO DAILY #60 tablet 01/06/17 History of Present Illness Patient complains of: rash and speech impairement History of Present Illness: CLEMENTE BROTHERS is a 66 year old male with a past medical history of moderate diastolic heart failure, moderate aortic regurgitation, diabetes, hypertension, Morbid obesity, obstructive sleep apnea and prostate cancer. Who gives a history of possible poison jairo exposure with painful rash approximately 10 days ago which initially involved his left leg but now involves all 4 extremities, abdominal wall, chest and groin, he sought treatment with primary care and was prescribed an unknown topical medication and hydroxyzine without improvement and over the last 6 hours has developed marketed fever of 103.0, myalgia and confusion. He remains somewhat confused his is at bedside and provides history. Including doubts overexposure to poison jairo as she was in the same area without development of rash. Patient denies another exposure to irritant or previous episode nor new medication prior to onset. He otherwise complains of abdominal pain and distention and denies headache nausea vomiting or stiff neck or photophobia. Speech impairement started 10 days prior to admission ; improved at time of admission speech is slow , hesitant A CT head performed in ED showed extensive white matter disease Patient was admitted to [facility] for further care Hospital Course Hospital Course: see above Physical Exam Vital Signs: Temp Pulse Resp BP Pulse Ox 97.3 F 79 16 135/78 H 99 01/06/17 12:08 01/06/17 14:00 01/06/17 12:08 01/06/17 12:08 01/06/17 12:08 Intake & Output 01/05/17 01/06/17 01/07/17 00:59 00:59 00:59 Intake Total 1533 2865 2180 Balance 1533 2865 2180 Weight 112.4 kg 112.2 kg 112.4 kg General appearance: PRESENT: no acute distress, well-developed, well-nourished Head exam: PRESENT: atraumatic, normocephalic Eye exam: PRESENT: conjunctiva pink, EOMI, PERRLA. ABSENT: scleral icterus Ear exam: PRESENT: normal external ear exam Mouth exam: PRESENT: moist, tongue midline Neck exam: ABSENT: carotid bruit, JVD, lymphadenopathy, thyromegaly Respiratory exam: PRESENT: clear to auscultation mary[place]. ABSENT: rales, rhonchi, wheezes Cardiovascular exam: PRESENT: RRR. ABSENT: diastolic murmur, rubs, systolic murmur Pulses: PRESENT: normal dorsalis pedis pul Vascular exam: PRESENT: normal capillary refill GI/Abdominal exam: PRESENT: normal bowel sounds, soft. ABSENT: distended, guarding, mass, organolmegaly, rebound, tenderness Rectal exam: PRESENT: deferred Extremities exam: PRESENT: full ROM. ABSENT: calf tenderness, clubbing, pedal edema Neurological exam: PRESENT: alert, awake, oriented to person, oriented to place , oriented to time, oriented to situation, CN II-XII grossly intact. ABSENT: motor sensory deficit Psychiatric exam: PRESENT: appropriate affect, normal mood. ABSENT: homicidal ideation, suicidal ideation Skin exam: PRESENT: dry, intact, warm, other - petechial rash fading upper- lower extremities. ABSENT: cyanosis, rash Results Laboratory Results: 01/06/17 04:56 01/06/17 04:56 01/06/17 01/06/17 04:56 04:56 WBC 13.1 H RBC 4.18 L Hgb 13.3 L Hct 39.1 MCV 94 MCH 31.7 MCHC 33.9 RDW 13.5 Plt Count 207 Seg Neutrophils % 61.5 Lymphocytes % 25.5 Monocytes % 7.8 Eosinophils % 4.8 Basophils % 0.4 Absolute Neutrophils 8.1 Absolute Lymphocytes 3.3 Absolute Monocytes 1.0 Absolute Eosinophils 0.6 Absolute Basophils 0.1 Sodium 138.3 Potassium 4.4 Chloride 102 Carbon Dioxide 23 Anion Gap 13 BUN 24 H Creatinine 0.91 Est GFR ( Amer) > 60 Est GFR (Non-Af Amer) > 60 Glucose 171 H Calcium 9.4 01/04/17 01/04/17 01/04/17 04:20 04:20 11:07 Creatine Kinase 177 H 156 CK-MB (CK-2) 1.85 Troponin I 0.028 01/04/17 01/04/17 01/04/17 11:07 17:50 17:50 Creatine Kinase 326 H CK-MB (CK-2) 2.35 3.27 Troponin I 0.013 0.013 01/03/17 01/04/17 01/05/17 23:55 04:20 06:16 WBC 23.6 H 22.5 H 15.6 H Rheumatoid Factor Anti-Nuclear Antibody c-ANCA Antibody Anti-Proteinase 3 Intrp Atypical p-ANCA p-ANCA Antibody Myeloperoxidase Ab Tot Complement (CH50) Hep Bs Antigen Hepatitis C (ROBERTA) HIV 1&2 Antibody 01/05/17 01/05/17 01/05/17 10:58 10:58 10:58 WBC Rheumatoid Factor Anti-Nuclear Antibody c-ANCA Antibody Pending Anti-Proteinase 3 Intrp Pending Atypical p-ANCA Pending p-ANCA Antibody Pending Myeloperoxidase Ab Pending Tot Complement (CH50) Pending Hep Bs Antigen Hepatitis C (ROBERTA) HIV 1&2 Antibody NEGATIVE 01/05/17 01/05/17 01/06/17 10:58 10:58 04:56 WBC 13.1 H Rheumatoid Factor NEGATIVE Anti-Nuclear Antibody Negative c-ANCA Antibody Anti-Proteinase 3 Intrp Atypical p-ANCA p-ANCA Antibody Myeloperoxidase Ab Tot Complement (CH50) Hep Bs Antigen Negative Hepatitis C (ROBERTA) <0.1 HIV 1&2 Antibody 01/05/17 06:26 Blood Culture - Preliminary Blood NO GROWTH IN 24 HOURS 01/05/17 03:23 Blood Culture - Preliminary Blood NO GROWTH IN 24 HOURS 01/05/17 00:41 Blood Culture - Preliminary Blood NO GROWTH IN 24 HOURS 01/04/17 23:26 Blood Culture - Preliminary Blood NO GROWTH IN 24 HOURS 01/04/17 21:15 Blood Culture - Preliminary Blood NO GROWTH IN 24 HOURS 01/04/17 20:05 Blood Culture - Preliminary Blood NO GROWTH IN 24 HOURS 01/04/17 04:20 Blood Culture - Preliminary Blood NO GROWTH AFTER 48 HOURS 01/03/17 23:55 Blood Culture - Preliminary Blood NO GROWTH AFTER 48 HOURS Impressions: Abdomen/Pelvis CT 01/04/17 00:00 IMPRESSION: No acute or suspicious findings. 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 Stable extensive hemispheric white matter disease. Punctate focus of altered diffusion in the left posterior frontal white matter on diffusion image 23, likely a tiny acute infarct. Unremarkable [place] MRA Chest CT 01/04/17 00:00 IMPRESSION: No acute or suspicious findings. Chest X-Ray 01/04/17 00:26 IMPRESSION: No acute findings. Head CT 01/04/17 11:26 IMPRESSION: Extensive white matter disease No acute parenchymal hemorrhage. No CT evidence of acute large territory ischemic change. 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 Stable extensive hemispheric white matter disease. Punctate focus of altered diffusion in the left posterior frontal white matter on diffusion image 23, likely a tiny acute infarct. Unremarkable [place] MRA Plan Discharge Plan: discharged home follow up with Neurology at [facility] and D Time Spent: Greater than 30 Minutes
[2017-01-06] MEDS ORDERED: HYDRALAZINE HCL 50 MG TABLET PO SCH (22:00)
[2017-01-06] MEDS ORDERED: CLONIDINE HCL 0.2 MG TABLET PO SCH (22:00)
[2017-01-09 16:39] LABS: ANTIPROTEINASE 3 (PR-3) AB <3.5 U/mL (0.0-3.5); CYTOPLASMIC (C-ANCA) <1:20 titer (Neg:<1:20)
== END 2017-01-06 16:34 | disposition home or self-care (01) | DRG 65 ==
LOC: ER 23:25 → EH 01-04 02:28 → UNDOADMIN 01-04 02:43 → EH 01-04 02:43 → 3S 01-04 06:49
PROVIDERS: ADMIT Internal Medicine; ATTEND Internal Medicine
PROC: 5A09357 Assistance with Respiratory Ventilation, Less than 24 Consecutive Hours, Continuous Positive Airway Pressure (ICD-10-PCS; principal; 2017-01-04)
PROC: 3E0F73Z Introduction of Anti-inflammatory into Respiratory Tract, Via Natural or Artificial Opening (ICD-10-PCS; 2017-01-04)
DX: I63.9 Cerebral infarction, unspecified (principal); Z68.41 Body mass index [BMI] 40.0-44.9, adult; I50.30 Unspecified diastolic (congestive) heart failure; I16.1 Hypertensive emergency; L03.116 Cellulitis of left lower limb; L03.311 Cellulitis of abdominal wall; E11.9 Type 2 diabetes mellitus without complications; E66.01 Morbid (severe) obesity due to excess calories; G47.33 Obstructive sleep apnea (adult) (pediatric); R47.01 Aphasia; I11.0 Hypertensive heart disease with heart failure; I35.1 Nonrheumatic aortic (valve) insufficiency; E78.5 Hyperlipidemia, unspecified; F17.210 Nicotine dependence, cigarettes, uncomplicated; L82.1 Other seborrheic keratosis; L98.2 Febrile neutrophilic dermatosis [Sweet]; E83.52 Hypercalcemia; I77.6 Arteritis, unspecified; D72.829 Elevated white blood cell count, unspecified; Z85.46 Personal history of malignant neoplasm of prostate; Z90.79 Acquired absence of other genital organ(s); Z79.82 Long term (current) use of aspirin; Z79.4 Long term (current) use of insulin; Z79.899 Other long term (current) drug therapy; Z83.3 Family history of diabetes mellitus; Z80.3 Family history of malignant neoplasm of breast; Z82.49 Family history of ischemic heart disease and other diseases of the circulatory system
CPT/HCPCS: 36415; 70450; 70544; 70551; 71010; 71250; 74177; 80048; 80053; 80202; 80307; 81001; 82550; 82553; 82803; 82962; 83036; 83516; 83605; 84484; 85025; 85540; 85610; 85652; 86038; 86140; 86162; 86256; 86430; 86701; 86803; 86804; 87040; 87086; 87340; 90686; 93005; 93010; 93306; 94660; J1644; J1815; J2543; J2930; J3370; J7030; J7060; J7512

== ENCOUNTER 2017-09-21 16:27 | Emergency (ER) | payer MEDICARE, OTHER ==
--- NOTE | 2017-09-21 18:29 | RADIOLOGY REPORT (SQ) ---
EXAM DESCRIPTION: CHEST SINGLE VIEW COMPLETED DATE/TIME: 09/21/2017 6:15 pm REASON FOR STUDY: Confusion COMPARISON: 01/04/2017 EXAM PARAMETERS: NUMBER OF VIEWS: One view. TECHNIQUE: Single frontal radiographic view of the chest acquired. RADIATION DOSE: NA LIMITATIONS: None. FINDINGS: LUNGS AND PLEURA: No opacities, masses or pneumothorax. No pleural effusion. MEDIASTINUM AND HILAR STRUCTURES: No masses. Contour normal. HEART AND VASCULAR STRUCTURES: Heart normal in size. Normal vasculature. BONES: No acute findings. HARDWARE: None in the chest. OTHER: No other significant finding. IMPRESSION: NO ACUTE RADIOGRAPHIC FINDING IN THE CHEST. TECHNICAL DOCUMENTATION: JOB ID: [id number] [employer]- All Rights Reserved
--- NOTE | 2017-09-21 18:43 | RADIOLOGY REPORT (SQ) ---
EXAM DESCRIPTION: CT HEAD WITHOUT COMPLETED DATE/TIME: 09/21/2017 6:26 pm REASON FOR STUDY: Confusion COMPARISON: MR and CT of the head 01/04/2017 TECHNIQUE: Axial images acquired through the brain without intravenous contrast. Images reviewed wi th bone, brain and subdural windows. Images stored on PACS. All CT scanners at this facility use dose modulation, iterative reconstruction, and/or weight based d osing when appropriate to reduce radiation dose to as low as reasonably achievable (ALARA). [facility]: Dose Right [facility]: CareDose [facility]: Dose Right [facility]: Teradose 4D [facility]: Socratic Labs RADIATION DOSE: mGy. LIMITATIONS: None. FINDINGS: VENTRICLES: Normal size and contour. CEREBRUM: No masses. No hemorrhage. No midline shift. No evidence for acute infarction. Extensive areas of low density in the white matter most likely chronic small vessel ischemic changes. CEREBELLUM: No masses. No hemorrhage. No alteration of density. No evidence for acute infarction. EXTRAAXIAL SPACES: No fluid collections. No masses. ORBITS AND GLOBE: No intra- or extraconal masses. Normal contour of globe without masses. CALVARIUM: No fracture. PARANASAL SINUSES: No fluid or mucosal thickening. SOFT TISSUES: No mass or hematoma. OTHER: No other significant finding. IMPRESSION: Extensive microvascular ischemia with no acute intracranial findings. EVIDENCE OF ACUTE STROKE: NO. COMMENT: Quality ID # [id number]: Final reports with documentation of one or more dose reduction techniques (e.g., Automated exposure control, adjustment of the mA and/or kV according to patient size, use of iterative reconstruction technique) TECHNICAL DOCUMENTATION: JOB ID: [id number] [employer]- All Rights Reserved
[2017-09-21 19:19] LABS: ABSOLUTE BASOPHILS # (AUTO) 0.1 10^3/uL (0.0-0.2); ABSOLUTE EOSINOPHILS # (AUTO) 0.4 10^3/uL (0.0-0.6); ABSOLUTE LYMPHOCYTES (AUTO) 2.3 10^3/uL (0.5-4.7); ABSOLUTE MONOCYTES (AUTO) 0.7 10^3/uL (0.1-1.4); ABSOLUTE NEUT (AUTO) 9.4 10^3/uL (1.7-8.2); BASOPHILS % (AUTO) 0.9 % (0-2); EOSINOPHILS % (AUTO) 2.8 % (0-6); HEMATOCRIT 42.1 % (37.9-51.0); HEMOGLOBIN 14.5 g/dL (13.5-17.0); HGB HCT DIFFERENCE 1.4; LYMPHOCYTES % (AUTO) 17.6 % (13-45); MEAN CORPUSCULAR HEMOGLOBIN 31.8 pg (27.0-33.4); MEAN CORPUSCULAR HGB CONC 34.5 g/dL (32.0-36.0); MEAN CORPUSCULAR VOLUME 92 fl (80-97); MONOCYTES % (AUTO) 5.1 % (3-13); RED BLOOD COUNT 4.57 10^6/uL (4.35-5.55); RED CELL DISTRIBUTION WIDTH 13.2 % (11.5-14.0); SEGMENTED NEUTROPHILS % (AUTO) 73.6 % (42-78); WHITE BLOOD COUNT 12.8 10^3/uL (4.0-10.5)
[2017-09-21 19:26] LABS: PARTIAL THROMBOPLASTIN TIME 25.8 SEC (23.5-35.8); PROTHROMBIN TIME 12.7 SEC (11.4-15.4)
[2017-09-21 19:29] LABS: ALANINE AMINOTRANSFERASE 54 U/L (21-72); ALBUMIN 4.7 g/dL (3.5-5.0); ALKALINE PHOSPHATASE 69 U/L (38-126); ANION GAP 14 (5-19); ASPARTATE AMINO TRANSFERASE 33 U/L (17-59); BILIRUBIN,DIRECT 0.5 mg/dL (0.0-0.4); BILIRUBIN,TOTAL 0.5 mg/dL (0.2-1.3); BLOOD UREA NITROGEN 25 mg/dL (7-20); CALCIUM 9.7 mg/dL (8.4-10.2); CARBON DIOXIDE 21 mmol/L (22-30); CHLORIDE 105 mmol/L (98-107); CREATINE KINASE 490 U/L (55-170); CREATININE RESULT 0.96 mg/dL (0.52-1.25); GLUCOSE 153 mg/dL (75-110); POTASSIUM 5.2 mmol/L (3.6-5.0); SODIUM 139.7 mmol/L (137-145); TOTAL PROTEIN 7.7 g/dL (6.3-8.2)
--- NOTE | 2017-09-21 19:29 | ER Document Report ---
ED General - General Chief Complaint: Dizziness Stated Complaint: DIZZY/WEAKNESS Time Seen by Provider: 09/21/17 19:26 Mode of Arrival: Ambulatory Information source: Patient Notes: This is a 67-year-old man with a history of diabetes, TIA (with history of cardiac and neurologic workup approximately 6 months ago) who presents to the emergency room after near syncopal episode at home. Patient states he was working in the yard for about 2-1/2 hours today. He states he did not drink any water. When he came into the house, he felt sudden dizziness and weakness felt like he was going to pass out. The patient had called his who then brought him to the hospital. Patient states the symptoms lasted for approximately 2 hours and is gradually gotten better. TRAVEL OUTSIDE OF THE [place] IN LAST 30 DAYS: No - HPI Onset: Just prior to arrival Onset/Duration: Gradual Quality of pain: No pain Severity: None Pain Level: Denies Associated symptoms: Weakness. denies: Fever, Shortness of breath Exacerbated by: Denies Relieved by: Denies Similar symptoms previously: No Recently seen / treated by doctor: No - Related Data Allergies/Adverse Reactions: No Known Allergies Allergy (Verified 09/21/17 16:29) Past Medical History - General Information source: Patient - Social History Smoking Status: Unknown if Ever Smoked Cigarette use (# per day): No Chew tobacco use (# tins/day): No Frequency of alcohol use: None Drug Abuse: None Lives with: Spouse/Significant other Family History: CAD, DM, Malignancy - Breast cancer in mother Patient has suicidal ideation: No Patient has homicidal ideation: No - Past Medical History Cardiac Medical History: Reports: Hx Congestive Heart Failure - Diastolic, Hx Hypercholesterolemia, Hx Hypertension Pulmonary Medical History: Reports: Hx Sleep Apnea Endocrine Medical History: Reports: Hx Diabetes Mellitus Type 2 Renal/ Medical History: Denies: Hx Peritoneal Dialysis Psychiatric Medical History: Denies: Hx Depression Past Surgical History: Reports: Other - Radical prostatectomy approximately 5 years ago - Immunizations Hx Diphtheria, Pertussis, Tetanus Vaccination: No Hx Pneumococcal Vaccination: 10/22/12 Review of Systems - Review of Systems Constitutional: denies: Chills, Fever EENT: No symptoms reported Cardiovascular: See HPI Respiratory: No symptoms reported Gastrointestinal: No symptoms reported Genitourinary: No symptoms reported Male Genitourinary: No symptoms reported Musculoskeletal: No symptoms reported Skin: No symptoms reported Hematologic/Lymphatic: No symptoms reported Neurological/Psychological: No symptoms reported Physical Exam - Vital signs Vitals: Temp Pulse Resp BP Pulse Ox 97.7 F 72 20 187/90 H 96 09/21/17 16:33 09/21/17 16:33 09/21/17 16:33 09/21/17 16:33 09/21/17 16:33 Notes: Physical exam: GENERAL: 67-year-old man, alert and oriented 3, no acute distress. Blood pressure 158/85, pulse 75, respiratory rate 14, O2 sat 98% on room air. HEAD: Atraumatic, normocephalic. EYES: Pupils equal round and reactive to light, extraocular movements intact, sclera anicteric, conjunctiva are normal. ENT: TMs normal, nares patent, oropharynx clear without exudates. Moist mucous membranes. NECK: Normal range of motion, supple without obvious mass or JVD. LUNGS: Breath sounds clear to auscultation bilaterally and equal. No wheezes rales or rhonchi. HEART: Regular rate and rhythm without murmurs, rubs or gallops. ABDOMEN: Soft, normoactive bowel sounds. No tenderness to palpation. No guarding, no rebound. No masses appreciated. EXTREMITIES: Normal range of motion, no pitting or edema. No clubbing or cyanosis. NEUROLOGICAL: Cranial nerves II through XII grossly intact. Normal speech, moving all extremities, motor 5/5 upper and lower, sensory grossly intact, cerebellar (finger to nose) good. PSYCH: Normal mood, normal affect. SKIN: Warm, Dry, normal turgor, no rashes or lesions noted. Course - Re-evaluation Re-evalutation: 09/21/17 23:25 Patient observed several hours, states he feels back to baseline. He wishes to go home. I did observe him several hours in the ER and repeated a troponin which is remained normal - Vital Signs Vital signs: Temp Pulse Resp BP Pulse Ox 97.7 F 72 20 196/94 H 98 09/21/17 16:33 09/21/17 16:33 09/21/17 21:17 09/21/17 21:17 09/21/17 21:17 - Laboratory Result Diagrams: 09/21/17 18:55 09/21/17 18:55 Laboratory results interpreted by me: 09/21/17 09/21/17 09/21/17 18:55 18:55 18:55 WBC 12.8 H Absolute Neutrophils 9.4 H Potassium 5.2 H Carbon Dioxide 21 L BUN 25 H Glucose 153 H Direct Bilirubin 0.5 H Creatine Kinase 490 H CK-MB (CK-2) 9.33 H - EKG Interpretation by Me Rate: Normal Rhythm: NSR - EKG shows normal sinus rhythm with a first-degree AV block, left axis deviation, poor R-wave progression, no acute ST-T wave changes. Discharge - Discharge Clinical Impression: Dehydration, Near-syncope Condition: Stable Disposition: HOME, SELF-CARE Additional Instructions: Thank you for choosing [facility] for your care. The examination and treatment you have received in the Emergency Department today has been rendered on an emergency basis only and is not intended to be a substitute for complete medical care. You should contact your follow-up physician as it is important that he or she examine you for any new or remaining problems. If given a copy of any lab tests or radiology reports, please bring them with you when you see your physician. If your problem worsens or new symptoms appear and you are unable to arrange prompt follow-up care, return to the Emergency Department. Specific signs to look out for: Dizziness, chest pain any concerns or getting worse. Any other instructions: Continue current medicines, follow-up with your primary care doctor. Referrals: SHANIQUE CAMARA, [Primary Care Provider] - Follow up as needed
[2017-09-21] MEDS ORDERED: NORMAL SALINE 1000 ML 1,000 ML IV PRN (19:30)
[2017-09-21 19:41] LABS: CREATINE KINASE MB 9.33 ng/mL (<4.55); TROPONIN I < 0.012 ng/mL
[2017-09-21 23:56] VITALS: BP 145/76
--- NOTE | 2017-09-22 02:47 | EKG REPORT ---
SEVERITY:- ABNORMAL ECG - SINUS RHYTHM FIRST DEGREE AV BLOCK PROBABLE INFERIOR INFARCT, OLD CONSIDER ANTEROSEPTAL INFARCT : Confirmed by: Fred Humphrey MD 21-Sep-2017 19:50:36
== END 2017-09-21 23:55 | disposition home or self-care (01) ==
LOC: ER 16:27
DX: E86.0 Dehydration (principal); I44.0 Atrioventricular block, first degree; R55 Syncope and collapse; R53.1 Weakness; E11.9 Type 2 diabetes mellitus without complications; I10 Essential (primary) hypertension; Z86.73 Personal history of transient ischemic attack (TIA), and cerebral infarction without residual deficits
CPT/HCPCS: 93005; 99285; 96360; 36415; 82553; 82550; 85025; 85610; 85730; 80053; 84484; 71010; 70450; 93010; J7030

== ENCOUNTER 2020-07-14 16:49 | Emergency (ER) | payer MEDICARE, OTHER ==
[2020-07-14 17:33] LABS: ABSOLUTE BASOPHILS # (AUTO) 0.1 10^3/uL (0.0-0.2); ABSOLUTE EOSINOPHILS # (AUTO) 0.4 10^3/uL (0.0-0.6); ABSOLUTE LYMPHOCYTES (AUTO) 2.5 10^3/uL (0.5-4.7); ABSOLUTE MONOCYTES (AUTO) 0.8 10^3/uL (0.1-1.4); EOSINOPHILS % (AUTO) 3.2 % (0-6); HEMOGLOBIN 14.1 g/dL (13.5-17.0); LYMPHOCYTES % (AUTO) 20.9 % (13-45); MEAN CORPUSCULAR HEMOGLOBIN 32.2 pg (27.0-33.4); MEAN CORPUSCULAR HGB CONC 34.3 g/dL (32.0-36.0); MEAN CORPUSCULAR VOLUME 94 fl (80-97); MONOCYTES % (AUTO) 7.2 % (3-13); PLATELET COUNT 218 10^3/uL (150-450); RED BLOOD COUNT 4.38 10^6/uL (4.35-5.55); RED CELL DISTRIBUTION WIDTH 13.4 % (11.5-14.0); SEGMENTED NEUTROPHILS % (AUTO) 67.7 % (42-78); TOTAL CELLS COUNTED % (AUTO) 100 %; WHITE BLOOD COUNT 11.7 10^3/uL (4.0-10.5)
[2020-07-14 17:36] LABS: VENOUS BLOOD BASE EXCESS -4.2 mmol/L; VENOUS BLOOD HCO3 20.5 mmol/L (20-32); VENOUS BLOOD PCO2 36.3 mmHg (35-63); VENOUS BLOOD PH 7.37 (7.30-7.42)
[2020-07-14 17:38] LABS: PROTHROMBIN TIME 13.4 SEC (11.4-15.4)
[2020-07-14 17:39] LABS: ALBUMIN 4.2 g/dL (3.5-5.0); ALKALINE PHOSPHATASE 61 U/L (38-126); ANION GAP 10 (5-19); ASPARTATE AMINO TRANSFERASE 31 U/L (17-59); BILIRUBIN,DIRECT 0.3 mg/dL (0.0-0.4); BILIRUBIN,TOTAL 0.7 mg/dL (0.2-1.3); BLOOD UREA NITROGEN 13 mg/dL (7-20); CALCIUM 9.3 mg/dL (8.4-10.2); CARBON DIOXIDE 24 mmol/L (22-30); CHLORIDE 105 mmol/L (98-107); GLUCOSE 170 mg/dL (75-110); POTASSIUM 4.9 mmol/L (3.6-5.0); TOTAL PROTEIN 7.2 g/dL (6.3-8.2)
--- NOTE | 2020-07-14 17:56 | RADIOLOGY REPORT (SQ) ---
EXAM DESCRIPTION: CHEST SINGLE VIEW IMAGES COMPLETED DATE/TIME: 07/14/2020 5:32 pm REASON FOR STUDY: altered mental status COMPARISON: 10/26/2016 EXAM PARAMETERS: NUMBER OF VIEWS: One view. TECHNIQUE: Single frontal radiographic view of the chest acquired. RADIATION DOSE: NA LIMITATIONS: None. FINDINGS: LUNGS AND PLEURA: No opacities, masses or pneumothorax. No pleural effusion. MEDIASTINUM AND HILAR STRUCTURES: No masses. Contour normal. HEART AND VASCULAR STRUCTURES: Heart normal in size. Normal vasculature. BONES: No acute findings. HARDWARE: None in the chest. OTHER: No other significant finding. IMPRESSION: NO ACUTE RADIOGRAPHIC FINDING IN THE CHEST. TECHNICAL DOCUMENTATION: JOB ID: [id number] [employer]- All Rights Reserved Reading location - IP/workstation name: [email or web address]
[2020-07-14 17:57] LABS: APPEARANCE,URINE SLIGHTLY-CLOUDY; BILIRUBIN,URINE NEGATIVE (NEGATIVE); COLOR,URINE YELLOW; GLUCOSE, URINE >=500 mg/dL (NEGATIVE); KETONES,URINE NEGATIVE (NEGATIVE); PROTEIN,URINE 30 mg/dL (NEGATIVE); URINE SPECIFIC GRAVITY 1.029; UROBILINOGEN,URINE NEGATIVE mg/dL (<2.0)
--- NOTE | 2020-07-14 18:11 | RADIOLOGY REPORT (SQ) ---
EXAM DESCRIPTION: CT HEAD WITHOUT IMAGES COMPLETED DATE/TIME: 07/14/2020 6:02 pm REASON FOR STUDY: altered mental status COMPARISON: 09/21/2017 TECHNIQUE: Axial images acquired through the brain without intravenous contrast. Images reviewed wi th bone, brain and subdural windows. Additional sagittal and coronal reconstructions were generated. Images stored on PACS. All CT scanners at this facility use dose modulation, iterative reconstruction, and/or weight based d osing when appropriate to reduce radiation dose to as low as reasonably achievable (ALARA). [facility]: Dose Right [facility]: CareDose [facility]: Dose Right [facility]: Teradose 4D [facility]: Smart [employer] RADIATION DOSE: CT Rad equipment meets quality standard of care and radiation dose reduction techniq ues were employed. CTDIvol: 53.2 mGy. DLP: 1124 mGy-cm. mGy. LIMITATIONS: None. FINDINGS: VENTRICLES: Normal size and contour. CEREBRUM: No masses. No hemorrhage. No midline shift. No evidence for acute infarction. Extensive areas of low density in the white matter most likely chronic small vessel ischemic changes. CEREBELLUM: No masses. No hemorrhage. No alteration of density. No evidence for acute infarction. EXTRAAXIAL SPACES: No fluid collections. No masses. ORBITS AND GLOBE: No intra- or extraconal masses. Normal contour of globe without masses. CALVARIUM: No fracture. PARANASAL SINUSES: No fluid or mucosal thickening. SOFT TISSUES: No mass or hematoma. OTHER: No other significant finding. IMPRESSION: CHRONIC MICROVASCULAR ISCHEMIA. NO ACUTE IMAGING FINDINGS IN THE BRAIN. EVIDENCE OF ACUTE STROKE: NO. COMMENT: Quality ID # [id number]: Final reports with documentation of one or more dose reduction techniques (e.g., Automated exposure control, adjustment of the mA and/or kV according to patient size, use of iterative reconstruction technique) TECHNICAL DOCUMENTATION: JOB ID: [id number] 2010 [employer]- All Rights Reserved Reading location - IP/workstation name: [email or web address]
[2020-07-14] MEDS ORDERED: RINGERS SOLUTION,LACTATED 1,000 ML IV ONE (18:12)
--- NOTE | 2020-07-14 18:19 | ER Document Report ---
ED General - General Chief Complaint: Altered Mental Status Stated Complaint: ALTERED MENTAL STATUS Time Seen by Provider: 07/14/20 17:04 Primary Care Provider: SHANIQUE CAMARA DO [NO LOCAL MD] - Follow up as needed TRAVEL OUTSIDE OF THE [place] IN LAST 30 DAYS: No - HPI Notes: Patient is a 69-year-old gentleman with a history of hypertension, prostate cancer, dementia, who presents to the emergency department for evaluation of altered mental status. His is the primary historian. She relates that they have had an increased amount of stress, recent in the family lately. He has not been eating as much. Over the last several days she has noticed that he seemed to be "breathing hard." She states that he normally wakes up at 6:30 in the morning, today he slept until almost 1 in the afternoon. She checked his heart rate, found his heart rate to be in the 100-1 15 range. She states his blood pressure was low, she got a reading of 74 systolic. She could not really arouse him, so she brought him here to the ER for further evaluation. He came in via EMS, he was administered a liter of IV fluids. The patient himself states that he feels like he may be having breathing difficulty, but really only since he has been here. He states he thinks is all the "stress" of being in the hospital. Otherwise he denies any pain. No recent changes in his medications. Per the he always has edema in his legs, it seems to be unchanged. - Related Data Allergies/Adverse Reactions: No Known Allergies Allergy (Verified 09/21/17 16:29) Home Medications: Telmisartan 80 mg daily, donepezil 10 mg daily, Coreg 25 mg daily, spironolactone 25 mg daily, Januvia 100 mg, clonidine 0.2 mg, aspirin 81 mg, Myrbetriq 25 mg, Invokana 150 mg/1000, metformin Past Medical History - General Information source: Patient, Relative - Social History Smoking Status: Former Smoker Frequency of alcohol use: None Drug Abuse: None Family History: CAD, DM, Malignancy - Breast cancer in mother - Past Medical History Cardiac Medical History: Reports: Hx Congestive Heart Failure - Diastolic, Hx Hypercholesterolemia, Hx Hypertension Pulmonary Medical History: Reports: Hx Sleep Apnea Endocrine Medical History: Reports: Hx Diabetes Mellitus Type 2 Renal/ Medical History: Denies: Hx Peritoneal Dialysis Psychiatric Medical History: Denies: Hx Depression Past Surgical History: Reports: Other - Radical prostatectomy approximately 5 years ago - Immunizations Hx Diphtheria, Pertussis, Tetanus Vaccination: No Hx Pneumococcal Vaccination: 10/22/12 Review of Systems - Review of Systems Constitutional: See HPI EENT: No symptoms reported Cardiovascular: See HPI Respiratory: See HPI Gastrointestinal: See HPI Genitourinary: No symptoms reported Musculoskeletal: No symptoms reported Skin: No symptoms reported Neurological/Psychological: See HPI Physical Exam - Vital signs Vitals: Temp 98.1 F 07/14/20 16:49 - Notes Notes: This is a very pleasant 69-year-old male who appears older than his stated age. He is mildly tachypneic, abdominal breathing noted. Vital signs reviewed, please refer to chart. Head is normocephalic, atraumatic. Pupils equal round, reactive to light. Neck is supple without meningismus. Heart is regular rate and rhythm. Lungs are clear to auscultation bilaterally. Abdomen is soft, nontender, normoactive bowel sounds throughout. Extremities without cyanosis, clubbing. 3+ pitting edema at the ankles bilaterally. Posterior calves are nontender. Peripheral pulses are equal. Skin is warm and dry. He has an erythematous and moist rash under his breast area, crosses just slightly over the midline. It does seem to be well demarcated with occasional satellite lesions, a few small vesicles are noted. Patient is awake, alert, neurological exam is nonfocal. Course - Re-evaluation Re-evalutation: 07/14/20 18:23 Patient presents to the emergency department for evaluation of altered mental status and abnormal vital signs. EMS found his blood pressure to be 85 systolic. He was administered a liter of IV fluids. The patient had a normal EF 3 years ago, but I am concerned about the possibility of worsened systolic function in this patient. He will be given a sepsis bolus of 30 cc/kg, but based on ideal body weight. This involved the administration of another liter of LR here in the emergency department. He was placed on a surveillance monitor. Laboratory investigations and imaging were as ordered. His chest x-ray was interpreted by radiology as being unremarkable, but I do have a high concern for a lung pathology as an etiology of his symptoms at this time. We will send him over for a PA and lateral film. Otherwise he is currently stable, we will continue to monitor. 07/14/20 20:19 Patient remains asymptomatic. His blood pressures have been stable without any further intervention. I did note the rash, I will be treated as zoster versus Echo. Nystatin and Valtrex ordered. Waiting for trending troponin and lactate. 07/14/20 20:19 Please note patient second chest x-ray shows pulmonary vascular congestion per radiologist. To my eye it does not look significantly changed from the AP film performed earlier. Patient does have an improved respiratory rate, his work of breathing seems to improve. He is currently breathing 16 times a minute with an O2 saturation of 97% on room air. 07/14/20 22:00 Patient remained stable. He remains asymptomatic. His blood pressures have all been normal here. His repeat troponin was unchanged, his lactic acid normalized. I explained to the patient and his that I do not have a clear etiology for his transient drop in blood pressure. I would be concerned about an occult infection, but I am not seeing any clear signs of that at this time. Blood culture and urine cultures are pending, I explained to the patient and his that they would be contacted if any bacteria grew. I also explained to them that they should keep it close check on his blood pressure, heart rate, and temperature. Any changes in his mental status or alterations in his vital signs should prompt him to return. They voiced understanding. Otherwise, I is unclear at this time as to whether or not his dermatitis is secondary to zoster or Echo, so we will treat as an outpatient for both. They are to follow-up with primary care this week. He is to return to the ED with worsening or new concerning symptoms of any sort. - Vital Signs Vital signs: Temp Pulse Resp BP Pulse Ox 98.0 F 88 21 H 140/80 H 95 07/14/20 22:00 07/14/20 19:05 07/14/20 22:01 07/14/20 22:00 07/14/20 22:01 - Laboratory Result Diagrams: 07/14/20 17:05 07/14/20 17:05 Laboratory results interpreted by me: 07/14/20 07/14/20 07/14/20 17:05 17:05 17:05 WBC 11.7 H Glucose 170 H POC Glucose Lactic Acid 3.3 H NT-Pro-B Natriuret Pep Urine Protein Urine Glucose (UA) 07/14/20 07/14/20 07/14/20 17:05 17:32 17:32 WBC Glucose POC Glucose 139 H Lactic Acid NT-Pro-B Natriuret Pep 4260 H Urine Protein 30 H Urine Glucose (UA) >=500 H - Diagnostic Test Radiology reviewed: Reports reviewed Radiology results interpreted by me: 07/14/20 20:19 Chest X-Ray 07/14/20 17:23 IMPRESSION: NO ACUTE RADIOGRAPHIC FINDING IN THE CHEST. Head CT 07/14/20 17:46 IMPRESSION: CHRONIC MICROVASCULAR ISCHEMIA. NO ACUTE IMAGING FINDINGS IN THE BRAIN. EVIDENCE OF ACUTE STROKE: NO. Chest X-Ray 07/14/20 18:33 IMPRESSION: Pulmonary vascular congestion without pulmonary edema. - EKG Interpretation by Me Additional EKG results interpreted by me: 07/14/20 18:24 Sinus/ectopic atrial rhythm. Normal axis. First-degree AV block. Nonspecific ST changes, but no acute changes concerning for ischemia or infarction. No significant change when compared to prior study of September 21, 2017. Discharge - Discharge Clinical Impression: Transient hypotension, Dermatitis Altered mental status Qualifiers: Altered mental status type: transient alteration of awareness Qualified Code(s): R40.4 - Transient alteration of awareness Condition: Stable Disposition: HOME, SELF-CARE Instructions: Altered Mental Status ([facility]) Additional Instructions: No clear cause was found for the temporary decrease in blood pressure and altered mental status experienced earlier today. Blood cultures and urine cultures are pending. If any signs of occult infection are identified, or bacteria grow, you will be contacted. Please keep a close eye on patient's blood pressure, heart rate, and temperature. If any changes occur, please return to the ED for further evaluation. It is unclear at this time as to whether or not your rash is secondary to yeast or shingles. Please keep the area clean with soap and water, apply nystatin twice daily. Take the Valtrex as directed until it is gone. Follow-up with primary care this week. If you develop worsening or new concerning symptoms of any sort, please return immediately to the ER for further evaluation. Prescriptions: Nystatin [Mycostatin Cream 15 gm] 1 applic TP BID #15 gm Valacyclovir HCl [Valtrex] 500 mg PO TID #20 tablet Referrals: SHANIQUE CAMARA DO [NO LOCAL MD] - Follow up as needed
--- NOTE | 2020-07-14 19:13 | RADIOLOGY REPORT (SQ) ---
EXAM DESCRIPTION: CHEST 2 VIEWS IMAGES COMPLETED DATE/TIME: 07/14/2020 6:54 pm REASON FOR STUDY: dyspnea, altered mental status COMPARISON: 07/14/2020 EXAM PARAMETERS: NUMBER OF VIEWS: two views TECHNIQUE: Digital Frontal and Lateral radiographic views of the chest acquired. RADIATION DOSE: NA LIMITATIONS: none FINDINGS: LUNGS AND PLEURA: Mild pulmonary vascular congestion. No pulmonary edema, infiltrate, or effusion. MEDIASTINUM AND HILAR STRUCTURES: No masses or contour abnormalities. HEART AND VASCULAR STRUCTURES: Heart normal size. No evidence for failure. BONES: No acute findings. HARDWARE: None in the chest. OTHER: No other significant finding. IMPRESSION: Pulmonary vascular congestion without pulmonary edema. TECHNICAL DOCUMENTATION: JOB ID: [id number] 2010 [employer]- All Rights Reserved Reading location - IP/workstation name: [email or web address]
--- NOTE | 2020-07-14 19:18 | EKG REPORT ---
SEVERITY:- ABNORMAL ECG - SINUS RHYTHM .BASELINE ARTIFACT FIRST DEGREE AV BLOCK PROBABLE INFERIOR INFARCT, AGE INDETERMINATE ANTERIOR INFARCT, OLD : Confirmed by: Monica Moreno MD 14-Jul-2020 19:17:19
[2020-07-14] MEDS ORDERED: NYSTATIN CREAM 15 GM TP ONE (20:11)
[2020-07-14] MEDS ORDERED: VALACYCLOVIR HCL 500 MG TABLET PO ONE (20:11)
[2020-07-14 22:30] VITALS: BP 140/80
== END 2020-07-14 22:20 | disposition home or self-care (01) ==
LOC: ER 16:49
DX: I95.9 Hypotension, unspecified (principal); L30.9 Dermatitis, unspecified; R06.00 Dyspnea, unspecified; R09.89 Other specified symptoms and signs involving the circulatory and respiratory systems; I44.0 Atrioventricular block, first degree; I11.0 Hypertensive heart disease with heart failure; I50.32 Chronic diastolic (congestive) heart failure; E11.9 Type 2 diabetes mellitus without complications; F03.90 Unspecified dementia, unspecified severity, without behavioral disturbance, psychotic disturbance, mood disturbance, and anxiety; Z85.46 Personal history of malignant neoplasm of prostate; Z63.4 Disappearance and death of family member; Z79.899 Other long term (current) drug therapy; Z79.82 Long term (current) use of aspirin; Z79.84 Long term (current) use of oral hypoglycemic drugs; Z87.891 Personal history of nicotine dependence
CPT/HCPCS: 93005; 99285; 96360; 36415; 87040; 82962; 83605; 85025; 85610; 80053; 81001; 84484; 82803; 83880; 71046; 71045; 70450; 93010; A9270 ×2; J7120; J3490

== ENCOUNTER 2020-09-10 17:30 | Inpatient (IN) | payer MEDICARE, OTHER ==
[2020-09-10] MEDS ORDERED: NORMAL SALINE 1000 ML 1,000 ML IV ONE ×2 (18:32→22:51)
--- NOTE | 2020-09-10 18:34 | ER Document Report ---
ED Medical Screen (RME) - General Stated Complaint: WEAKNESS, POSSIBLE LOW BLOOD PRESSURE Time Seen by Provider: 09/10/20 18:27 Primary Care Provider: JOSE RAE PA-C [Primary Care Provider] - Follow up as needed Notes: Patient is a 70-year-old male with a history of dementia who presents emergency department with generalized weakness and diarrhea. Patient denies any contact with anybody who tested positive for COVID-19. According to the patient's , the patient has had decreased appetite and had a low blood pressure reading with systolic blood pressure in the 70s this morning. Patient is currently on blood pressure medication. Exam: Blood pressure 95/54. I have greeted and performed a rapid initial assessment of this patient. A comprehensive ED assessment and evaluation of the patient, analysis of test results and completion of medical decision making process will be conducted by an additional ED providers. TRAVEL OUTSIDE OF THE [place] IN LAST 30 DAYS: No - Related Data Allergies/Adverse Reactions: No Known Allergies Allergy (Verified 09/21/17 16:29) Past Medical History - Past Medical History Cardiac Medical History: Reports: Hx Congestive Heart Failure - Diastolic, Hx Hypercholesterolemia, Hx Hypertension Pulmonary Medical History: Reports: Hx Sleep Apnea Endocrine Medical History: Reports: Hx Diabetes Mellitus Type 2 Renal/ Medical History: Denies: Hx Peritoneal Dialysis Psychiatric Medical History: Denies: Hx Depression Past Surgical History: Reports: Other - Radical prostatectomy approximately 5 years ago - Immunizations Hx Diphtheria, Pertussis, Tetanus Vaccination: No Physical Exam - Vital signs Vitals: Temp Pulse Resp BP Pulse Ox 97.5 F 75 20 95/54 L 95 09/10/20 18:14 09/10/20 18:14 09/10/20 18:14 09/10/20 18:14 09/10/20 18:14 Course - Vital Signs Vital signs: Temp Pulse Resp BP Pulse Ox 97.5 F 75 20 95/54 L 95 09/10/20 18:14 09/10/20 18:14 09/10/20 18:14 09/10/20 18:14 09/10/20 18:14 Doctor's Discharge - Discharge Referrals: JOSE RAE PA-C [Primary Care Provider] - Follow up as needed
[2020-09-10 19:13] LABS: ABSOLUTE BASOPHILS # (AUTO) 0.1 10^3/uL (0.0-0.2); ABSOLUTE EOSINOPHILS # (AUTO) 0.1 10^3/uL (0.0-0.6); ABSOLUTE LYMPHOCYTES (AUTO) 2.3 10^3/uL (0.5-4.7); ABSOLUTE MONOCYTES (AUTO) 0.6 10^3/uL (0.1-1.4); ABSOLUTE NEUT (AUTO) 11.5 10^3/uL (1.7-8.2); BASOPHILS % (AUTO) 0.4 % (0-2); HEMATOCRIT 41.4 % (37.9-51.0); HEMOGLOBIN 13.9 g/dL (13.5-17.0); LYMPHOCYTES % (AUTO) 15.9 % (13-45); MEAN CORPUSCULAR HEMOGLOBIN 31.7 pg (27.0-33.4); MEAN CORPUSCULAR HGB CONC 33.6 g/dL (32.0-36.0); MEAN CORPUSCULAR VOLUME 94 fl (80-97); MONOCYTES % (AUTO) 4.4 % (3-13); PLATELET COUNT 272 10^3/uL (150-450); RED BLOOD COUNT 4.39 10^6/uL (4.35-5.55); RED CELL DISTRIBUTION WIDTH 13.2 % (11.5-14.0); SEGMENTED NEUTROPHILS % (AUTO) 78.3 % (42-78); TOTAL CELLS COUNTED % (AUTO) 100 %; WHITE BLOOD COUNT 14.7 10^3/uL (4.0-10.5)
[2020-09-10 19:34] LABS: ALBUMIN 4.8 g/dL (3.5-5.0); ALKALINE PHOSPHATASE 59 U/L (38-126); ANION GAP 18 (5-19); ASPARTATE AMINO TRANSFERASE 32 U/L (17-59); BILIRUBIN,DIRECT 0.3 mg/dL (0.0-0.4); BILIRUBIN,TOTAL 0.9 mg/dL (0.2-1.3); BLOOD UREA NITROGEN 79 mg/dL (7-20); CALCIUM 10.2 mg/dL (8.4-10.2); CARBON DIOXIDE 13 mmol/L (22-30); CHLORIDE 105 mmol/L (98-107); GLUCOSE 159 mg/dL (75-110); TOTAL PROTEIN 7.9 g/dL (6.3-8.2)
[2020-09-10] MEDS ORDERED: CALCIUM GLUCONATE 1000 MG/10 ML INJ IV ONE (20:56)
[2020-09-10] MEDS ORDERED: SODIUM BICARBONATE 8.4% INJ 50 MEQ/50 ML DISP.SYRIN IV ONE (20:56)
[2020-09-10] MEDS ORDERED: DEXTROSE 50%-WATER 25 GM/50 ML DISP.SYRIN IV ONE (20:56)
[2020-09-10] MEDS ORDERED: INSULIN REG, HUMAN 100 UNIT/ML 3 ML VIAL (PYX) IV ONE (20:56)
--- NOTE | 2020-09-10 21:14 | ER Document Report ---
Entered by ABBEI CEE SCRIBE [id number]/10/[id number] Acting as scribe for:JASON MORRIS, ED General - General Chief Complaint: General Weakness Stated Complaint: WEAKNESS, POSSIBLE LOW BLOOD PRESSURE Time Seen by Provider: 09/10/20 18:27 Primary Care Provider: JOSE RAE PA-C [Primary Care Provider] - Follow up as needed Mode of Arrival: Ambulatory Information source: Patient Notes: This 70 year old male patient presents to the emergency department today with complaints of generalized weakness for the last few weeks with associated vomiting and diarrhea for the last several days. Patient's reports that the patient has not been eating or drinking the last few days. Patient denies any pain anywhere. TRAVEL OUTSIDE OF THE [place] IN LAST 30 DAYS: No - Related Data Allergies/Adverse Reactions: No Known Allergies Allergy (Verified 09/21/17 16:29) Home Medications: Donepezil. Telmisartan. Carvedilol. Canagliflozin. myrbetrig. clonidine. Junvia. Spironolacton. Aspirin. Atorvastatin Past Medical History - General Information source: Patient - Social History Smoking Status: Former Smoker Cigarette use (# per day): No Chew tobacco use (# tins/day): No Drug Abuse: None Lives with: Family Family History: CAD, DM, Malignancy - Breast cancer in mother - Past Medical History Cardiac Medical History: Reports: Hx Congestive Heart Failure - Diastolic, Hx Hypercholesterolemia, Hx Hypertension Pulmonary Medical History: Reports: Hx Sleep Apnea Endocrine Medical History: Reports: Hx Diabetes Mellitus Type 2 Past Surgical History: Reports: Other - Radical prostatectomy approximately 5 years ago - Immunizations Hx Diphtheria, Pertussis, Tetanus Vaccination: No Hx Pneumococcal Vaccination: 10/22/12 Review of Systems - Review of Systems Constitutional: See HPI, Weakness EENT: No symptoms reported Cardiovascular: No symptoms reported Respiratory: No symptoms reported Gastrointestinal: See HPI, Diarrhea, Vomiting Genitourinary: No symptoms reported Male Genitourinary: No symptoms reported Musculoskeletal: No symptoms reported Skin: No symptoms reported Hematologic/Lymphatic: No symptoms reported Neurological/Psychological: No symptoms reported -: Yes All other systems reviewed and negative Physical Exam - Vital signs Vitals: Temp Pulse Resp BP Pulse Ox 97.5 F 75 20 95/54 L 95 09/10/20 18:14 09/10/20 18:14 09/10/20 18:14 09/10/20 18:14 09/10/20 18:14 - Notes Notes: Physical Exam: General: Alert, appears generally weak. HEENT: Normocephalic. Atraumatic. PERRL. Extraocular movements intact. Oropharynx clear. Neck: Supple. Non-tender. Respiratory: No respiratory distress. Clear and equal breath sounds bilaterally. Cardiovascular: Regular rate and rhythm. Abdominal: Normal Inspection. Non-tender. No distension. Normal Bowel Sounds. Back: No gross abnormalities. Extremities: Moves all four extremities. Upper extremities: Normal inspection. Normal ROM. Lower extremities: Normal inspection. No edema. Normal ROM. Neurological: Normal cognition. AAOx4. Normal speech. Psychological: Normal affect. Normal Mood. Skin: Warm. Dry. Normal color. Poor turgor Course - Re-evaluation Re-evalutation: 09/11/20 01:01 MDM 70 year old male with htn, dm, hld is here with acute kidney injury, hyperkalemia and feeling poorly with very little po intake over the last 2 days or so with dry heaving. IVF have been initiated and the elevated K addressed. I have discussed the pt with the hospitalist team and he has graciously agreed to see and evaluate for admission. - Vital Signs Vital signs: Temp Pulse Resp BP Pulse Ox 97.5 F 75 20 159/86 H 99 09/10/20 18:14 09/10/20 18:14 09/10/20 18:14 09/10/20 21:11 09/10/20 20:12 - Laboratory Result Diagrams: 09/10/20 18:42 09/11/20 00:15 Laboratory results interpreted by me: 09/10/20 09/10/20 09/10/20 18:42 18:42 23:15 WBC 14.7 H Absolute Neuts (auto) 11.5 H Seg Neutrophils % 78.3 H Sodium 135.8 L Potassium 8.0 H* Chloride Carbon Dioxide 13 L BUN 79 H Creatinine 3.80 H Est GFR ( Amer) 19 L Est GFR (MDRD) Non-Af 16 L Glucose 159 H Urine Glucose (UA) >=500 H Urine Ketones TRACE H Urine Blood SMALL H 09/11/20 00:15 WBC Absolute Neuts (auto) Seg Neutrophils % Sodium Potassium 6.6 H* D Chloride 111 H Carbon Dioxide 15 L BUN 80 H Creatinine 3.13 H Est GFR ( Amer) 24 L Est GFR (MDRD) Non-Af 20 L Glucose 140 H Urine Glucose (UA) Urine Ketones Urine Blood Critical Care Note - Critical Care Note Total time excluding time spent on procedures (mins): 30 Discharge - Discharge Clinical Impression: Hyperkalemia, Acute kidney injury, Abnormal metabolic state in diabetes mellitus Condition: Serious Disposition: ADMITTED INPATIENT Admitting Provider: [facility] Unit Admitted: [facility] Referrals: JOSE RAE PA-C [Primary Care Provider] - Follow up as needed I personally performed the services described in the documentation, reviewed and edited the documentation which was dictated to the scribe in my presence, and it accurately records my words and actions.
[2020-09-10] MEDS ORDERED: SODIUM BICARBONATE 8.4% INJ 50 MEQ/50 ML DISP.SYRIN ONE (21:36)
[2020-09-10] MEDS ORDERED: SODIUM POLYSTYRENE SULFONATE 15 GM/60 ML PO ONE (22:17)
--- NOTE | 2020-09-10 23:36 | RADIOLOGY REPORT (SQ) ---
EXAM DESCRIPTION: X-RAY CHEST- One View CLINICAL HISTORY: Hypertension COMPARISON: July 14, 2020 TECHNIQUE: Single view of the chest. FINDINGS: There are overlying EKG leads. There are no discrete air space infiltrates, pneumothoraces or pleural effusions. The pulmonary vascularity is normal. The cardiomediastinal silhouette is stable in size. No suspicious lytic or blastic osseous lesions are identified. IMPRESSION: There are no acute lung parenchymal findings.
[2020-09-10 23:58] LABS: APPEARANCE,URINE SLIGHTLY-CLOUDY; BILIRUBIN,URINE NEGATIVE (NEGATIVE); COLOR,URINE YELLOW; GLUCOSE, URINE >=500 mg/dL (NEGATIVE); KETONES,URINE TRACE mg/dL (NEGATIVE); PROTEIN,URINE NEGATIVE (NEGATIVE); URINE SPECIFIC GRAVITY 1.016; UROBILINOGEN,URINE NEGATIVE mg/dL (<2.0)
[2020-09-11 00:50] LABS: ANION GAP 15 (5-19); BLOOD UREA NITROGEN 80 mg/dL (7-20); CALCIUM 9.8 mg/dL (8.4-10.2); CARBON DIOXIDE 15 mmol/L (22-30); CHLORIDE 111 mmol/L (98-107); GLUCOSE 140 mg/dL (75-110)
[2020-09-11 00:57] LABS: POTASSIUM 6.6 mmol/L (3.6-5.0)
[2020-09-11] MEDS ORDERED: INSULIN REG, HUMAN 100 UNIT/ML 3 ML VIAL (PYX) IV ONE (01:05)
[2020-09-11] MEDS ORDERED: DEXTROSE 50%-WATER 25 GM/50 ML DISP.SYRIN IV ONE (01:06)
[2020-09-11] MEDS ORDERED: ACETAMINOPHEN 325 MG TABLET PO PRN (01:14)
[2020-09-11] MEDS ORDERED: GLUCAGON,HUMAN RECOMB 1 MG INJ IM PRN (01:26)
[2020-09-11] MEDS ORDERED: DEXTROSE 40% GEL 15 GM TUBE PO PRN ×2 (01:26)
[2020-09-11] MEDS ORDERED: DEXTROSE 50%-WATER 25 GM/50 ML DISP.SYRIN IV PRN ×2 (01:26)
--- NOTE | 2020-09-11 01:56 | PDOC H&P ---
History of Present Illness Admission Date/PCP: 09/11/20 01:08 JOSE RAE PA-C Patient complains of: Generalized weakness History of Present Illness: CLEMENTE BROTHERS is a 70 year old male with a history of hypertension, type 2 diabetes, CVA and dementia is brought in by his after he had a low blood pressure of 77/44 at home. His reports that he has not been able to eat in the past few weeks and has been generally feeling weak. Associated with this he had 2 episodes of watery diarrhea with associated nausea and vomiting of ingested matter. Patient states that he has been having decline in his functional status and also reports that he has lost significant weight in the past few months. Patient denies any lightheadedness, chest pain, palpitation, shortness of breath, weakness of one of his extremities, change in his speech, difficulty of swallowing, fever, cough, abdominal pain, hematochezia, melena, hematemesis, dysuria, frequency or urgency. Past Medical History Cardiac Medical History: Reports: Congestive Heart Failure - Diastolic, Hyperlipidema, Hypertension Pulmonary Medical History: Reports: Sleep Apnea Endocrine Medical History: Reports: Diabetes Mellitus Type 2 Psychiatric Medical History: Denies: Depression Past Surgical History Past Surgical History: Reports: Other - Radical prostatectomy approximately 5 years ago Social History Information Source: Patient Lives with: Family Smoking Status: Former Smoker Electronic Cigarette use?: No Frequency of Alcohol Use: Occasional Hx Recreational Drug Use: No Drugs: None Hx Prescription Drug Abuse: No - Advance Directive Resuscitation Status: Full Code Family History Family History: CAD, DM, Malignancy - Breast cancer in mother Parental Family History Reviewed: Yes Children Family History Reviewed: Yes Sibling(s) Family History Reviewed.: Yes Medication/Allergy Home Medications: Carvedilol [Coreg 25 mg Tablet] 25 tab PO Q12 12/07/15 Atorvastatin Calcium [Lipitor 80 mg Tablet] 40 mg PO QHS tablet 12/08/15 Aspirin [Aspirin EC] 81 mg PO DAILY 01/04/17 Canagliflozin/Metformin HCl [Invokamet 150-1,000 mg Tablet] 1 tab PO BID 01/04/17 Ferrous Sulfate 324 mg PO DAILY 01/04/17 Furosemide [Lasix] 40 mg PO DAILY 01/04/17 Ginkgo Biloba 120 mg PO DAILY 01/04/17 Hydroxyzine HCl 25 mg PO QIDP PRN 01/04/17 Insulin Glargine,Hum.rec.anlog [Lantus (Pyxis) Insulin 100 Unit/1 ml 10 ml] 40 unit SUBCUT QAM 01/04/17 Mirabegron [Myrbetriq] 25 mg PO DAILY 01/04/17 Sitagliptin Phosphate [Januvia] 100 mg PO DAILY 01/04/17 Spironolactone 25 mg PO DAILY 01/04/17 Triamcinolone Acetonide [Aristocort 0.1% Cream] 1 applic TP BID PRN 01/04/17 Valsartan 320 mg PO DAILY 01/04/17 Clonidine HCl [Catapres 0.2 mg Tablet] 0.2 mg PO Q12 #60 tablet 01/06/17 Hydralazine HCl [Apresoline 50 mg Tablet] 50 mg PO Q12 #60 tablet 01/06/17 Prednisone [Deltasone 20 mg Tablet] 60 mg PO DAILY #60 tablet 01/06/17 Nystatin [Mycostatin Cream 15 gm] 1 applic TP BID #15 gm 07/14/20 Valacyclovir HCl [Valtrex] 500 mg PO TID #20 tablet 07/14/20 Allergies/Adverse Reactions: No Known Allergies Allergy (Verified 09/21/17 16:29) Review of Systems Constitutional: PRESENT: anorexia, fatigue, weakness, weight loss. ABSENT: chills, fever(s), headache(s), night sweats, weight gain Eyes: ABSENT: visual disturbances Ears: ABSENT: hearing changes Nose, Mouth, and Throat: ABSENT: headache(s), mouth pain, sore throat Cardiovascular: ABSENT: chest pain, dyspnea on exertion, edema, orthropnea, palpitations Respiratory: ABSENT: cough, hemoptysis Gastrointestinal: PRESENT: as per HPI Genitourinary: ABSENT: dysuria, hematuria Musculoskeletal: PRESENT: muscle weakness. ABSENT: joint swelling Integumentary: ABSENT: rash, wounds Neurological: ABSENT: abnormal gait, abnormal speech, confusion, dizziness, focal weakness, syncope Psychiatric: ABSENT: anxiety, depression, homidical ideation, suicidal ideation Endocrine: ABSENT: cold intolerance, heat intolerance, polydipsia, polyuria Hematologic/Lymphatic: ABSENT: easy bleeding, easy bruising Physical Exam Vital Signs: Temp Pulse Resp BP Pulse Ox 97.5 F 75 20 159/86 H 99 09/10/20 18:14 09/10/20 18:14 09/10/20 18:14 09/10/20 21:11 09/10/20 20:12 Intake & Output 09/09/20 09/10/20 09/11/20 06:59 06:59 06:59 Intake Total 1000 Balance 1000 Weight 84.4 kg Additional comments: GENERAL APPEARANCE: Alert and oriented x3, in no acute distress HEENT: Normocephalic and atraumatic. No scleral icterus. Dry oral mucosa NECK: Supple. No lymphadenopathy or tenderness. No JVD CHEST: Symmetric. Nontender to palpation. LUNGS: Clear with good air entry bilaterally. No wheezing or crackles HEART: Regular rate and rhythm with normal S1 and S2. No murmurs, gallops, or rubs. ABDOMEN: soft, active bowel sounds, no direct or rebound tenderness. No organomegaly detected. EXTREMITIES: No cyanosis, clubbing, or edema. MUSCULOSKELETAL: No deformity, atrophy or swelling noted PSYCHIATRIC: Recent and remote memory is intact. Appropriate mood and affect. SKIN: Warm, dry, and well perfused. No lesions or rashes are noted. NEUROLOGIC: No focal sensory or motor deficits are noted. Results Laboratory Results: 09/10/20 18:42 09/11/20 00:15 09/10/20 09/10/20 09/10/20 18:42 18:42 18:42 WBC 14.7 H RBC 4.39 Hgb 13.9 Hct 41.4 MCV 94 MCH 31.7 MCHC 33.6 RDW 13.2 Plt Count 272 Seg Neutrophils % 78.3 H Sodium 135.8 L Potassium 8.0 H* Chloride 105 Carbon Dioxide 13 L Anion Gap 18 BUN 79 H Creatinine 3.80 H Est GFR ( Amer) 19 L Est GFR (Non-Af Amer) Glucose 159 H Lactic Acid 1.5 Calcium 10.2 Total Bilirubin 0.9 AST 32 Alkaline Phosphatase 59 Total Protein 7.9 Albumin 4.8 Urine Color Urine Appearance Urine pH Ur Specific [place] Urine Protein Urine Glucose (UA) Urine Ketones Urine Blood Urine RBC (Auto) 09/10/20 09/10/20 09/10/20 20:39 23:01 23:15 WBC RBC Hgb Hct MCV MCH MCHC RDW Plt Count Seg Neutrophils % Sodium Cancelled Potassium Cancelled Chloride Cancelled Carbon Dioxide Cancelled Anion Gap Cancelled BUN Cancelled Creatinine Cancelled Est GFR ( Amer) Cancelled Est GFR (Non-Af Amer) Cancelled Glucose Cancelled Lactic Acid 1.2 Calcium Cancelled Total Bilirubin AST Alkaline Phosphatase Total Protein Albumin Urine Color YELLOW Urine Appearance SLIGHTLY-CLOUDY Urine pH 5.0 Ur Specific [place] 1.016 Urine Protein NEGATIVE Urine Glucose (UA) >=500 H Urine Ketones TRACE H Urine Blood SMALL H Urine RBC (Auto) 17 09/11/20 00:15 WBC RBC Hgb Hct MCV MCH MCHC RDW Plt Count Seg Neutrophils % Sodium 141.0 Potassium 6.6 H* D Chloride 111 H Carbon Dioxide 15 L Anion Gap 15 BUN 80 H Creatinine 3.13 H Est GFR ( Amer) 24 L Est GFR (Non-Af Amer) Glucose 140 H Lactic Acid Calcium 9.8 Total Bilirubin AST Alkaline Phosphatase Total Protein Albumin Urine Color Urine Appearance Urine pH Ur Specific [place] Urine Protein Urine Glucose (UA) Urine Ketones Urine Blood Urine RBC (Auto) 09/11/20 00:15 Creatine Kinase 125 Impressions: Chest X-Ray 09/10/20 23:00 IMPRESSION: There are no acute lung parenchymal findings. Assessment and Plan - Diagnosis (1) Hyperkalemia Is this a current diagnosis for this admission?: Yes Plan: Patient had severe hyperkalemia on arrival with a potassium level of 8.0 He was given calcium gluconate, sodium bicarbonate, insulin with dextrose and Kayexalate at the ED EKG showed no peaked T wave, there was no shortening of QTc interval, compared to his previous study no significant change Likely precipitated by acute kidney injury After interventions repeat potassium came down to 6.6 Was given additional insulin with dextrose Continue IV hydration Will monitor him on telemetry Closely monitor serum electrolytes (2) Acute kidney injury Is this a current diagnosis for this admission?: Yes Plan: Likely prerenal from poor oral intake and volume depletion BUN/creatinine was 79/3.80 from a baseline creatinine of around 1.13 two months back Patient was given 1 L normal saline bolus at the ED Patient still appears to be dry Continue hydration with normal saline at 200 mL/h Closely monitor his fluid status for volume overload due to history of diastolic heart failure Will hold antihypertensives and diuretics Renally dose medications avoid nephrotoxic drugs Continue monitoring renal indicis and electrolytes (3) High anion gap metabolic acidosis Is this a current diagnosis for this admission?: Yes Plan: Likely due to acute kidney injury We will continue treating underlying cause as stated above (4) Volume depletion Is this a current diagnosis for this admission?: Yes Plan: During my exam at the ER patient's blood pressure was 95 x 54 Continue IV hydration Hold antihypertensives and diuretics for now Closely monitor vitals (5) Leukocytosis Qualifiers: Leukocytosis type: unspecified Qualified Code(s): D72.829 - Elevated white blood cell count, unspecified Is this a current diagnosis for this admission?: Yes Plan: Patient has no sign of infection at this point UA and chest x-ray were unremarkable Likely to be due to hemoconcentration from dehydration We will continue to monitor CBC Follow-up with blood culture (6) Type 2 diabetes mellitus Is this a current diagnosis for this admission?: Yes Plan: Will place patient on sliding scale insulin with hypoglycemia protocol and Accu- Cheks (7) Hypertension Is this a current diagnosis for this admission?: Yes Plan: Currently patient is hypotensive Hold antihypertensive medication for now (8) Diastolic heart failure Is this a current diagnosis for this admission?: Yes Plan: On this presentation patient appears to be dehydrated Patient was given a liter of IV fluid at the ED and now on 200 mL/h hydration Chest x-ray shows no signs of pulmonary vascular congestion Currently has no signs of volume overload Continue current IV hydration with closer monitoring of his fluid status (9) CVA (cerebral vascular accident) Qualifiers: Laterality of affected vessel: unspecified Is this a current diagnosis for this admission?: Yes Plan: No new neurologic deficit on this encounter Continue atorvastatin and aspirin - Time Time Spent with patient: 35 or more minutes Total Critical Time (Minutes): 45 Medications reviewed and adjusted accordingly: Yes Anticipated Discharge Disposition: Home, Self Care Anticipated Discharge Timeframe: within 72 hours - Inpatient Certification Based on my medical assessment, after consideration of the patient's comorbidities, presenting symptoms, or acuity I expect that the services needed warrant INPATIENT care.: Yes I certify that my determination is in accordance with my understanding of Medicare's requirements for reasonable and necessary INPATIENT services [42 CFR 412.3e].: Yes Medical Necessity: Significant Comorbidiites Make Outpatient Treatment Too Risky, Need Close Monitoring Due to Risk of Patient Decompensation, Need For IV Fluids, Need For Continuous Telemetry Monitoring Post Hospital Care: D/C or Transfer Summary
[2020-09-11] MEDS: NORMAL SALINE 1000 ML 1,000 ML IV PRN ×4 (03:10→22:21)
[2020-09-11 03:36] LABS: ANION GAP 14 (5-19); BLOOD UREA NITROGEN 79 mg/dL (7-20); CALCIUM 9.5 mg/dL (8.4-10.2); CARBON DIOXIDE 16 mmol/L (22-30); CHLORIDE 111 mmol/L (98-107); GLUCOSE 173 mg/dL (75-110); POTASSIUM 5.7 mmol/L (3.6-5.0)
[2020-09-11 04:02] LABS: URINE CREATININE 100.1 mg/dL (22-328)
[2020-09-11] MEDS: INSULIN REG, HUMAN 100 UNIT/ML 3 ML VIAL (PYX) SUBCUT SCH ×4 (08:01→22:06)
[2020-09-11] MEDS: FAMOTIDINE 20 MG TABLET PO SCH ×2 (10:18→22:22)
[2020-09-11] MEDS: HEPARIN SOD (PORCINE) 5,000 UNIT/ML 1 ML VIAL SUBCUT SCH ×2 (10:18→22:22)
[2020-09-11] MEDS ORDERED: PATIROMER 8.4 GM SUSP PACKET PO SCH (17:00)
--- NOTE | 2020-09-11 17:21 | Progress Note ---
Provider Note Provider Note: Mr. Lyle was doing well this morning. His creatinine has potassium improved. He is eating. He appeared comfortable. Vital signs are stable. Veltassa was added to his regimen.
--- NOTE | 2020-09-11 19:44 | EKG REPORT ---
SEVERITY:- ABNORMAL ECG - SINUS RHYTHM , FIST DEGREE AV BLOCK ABNRM R PROG, CONSIDER ASMI OR LEAD PLACEMENT NONSPECIFIC T ABNORMALITIES, LATERAL LEADS : Confirmed by: Monica Moreno MD 11-Sep-2020 19:43:37
[2020-09-12] MEDS: INSULIN REG, HUMAN 100 UNIT/ML 3 ML VIAL (PYX) SUBCUT SCH ×4 (08:04→21:34)
[2020-09-12 08:20] LABS: ABSOLUTE BASOPHILS # (AUTO) 0.1 10^3/uL (0.0-0.2); ABSOLUTE EOSINOPHILS # (AUTO) 0.3 10^3/uL (0.0-0.6); ABSOLUTE LYMPHOCYTES (AUTO) 2.6 10^3/uL (0.5-4.7); ABSOLUTE MONOCYTES (AUTO) 0.7 10^3/uL (0.1-1.4); ABSOLUTE NEUT (AUTO) 4.7 10^3/uL (1.7-8.2); BASOPHILS % (AUTO) 0.9 % (0-2); EOSINOPHILS % (AUTO) 3.6 % (0-6); HEMATOCRIT 34.7 % (37.9-51.0); HEMOGLOBIN 11.9 g/dL (13.5-17.0); LYMPHOCYTES % (AUTO) 31.1 % (13-45); MEAN CORPUSCULAR HEMOGLOBIN 31.9 pg (27.0-33.4); MEAN CORPUSCULAR HGB CONC 34.4 g/dL (32.0-36.0); MEAN CORPUSCULAR VOLUME 93 fl (80-97); MONOCYTES % (AUTO) 8.3 % (3-13); PLATELET COUNT 216 10^3/uL (150-450); RED BLOOD COUNT 3.74 10^6/uL (4.35-5.55); RED CELL DISTRIBUTION WIDTH 13.1 % (11.5-14.0); SEGMENTED NEUTROPHILS % (AUTO) 56.1 % (42-78); TOTAL CELLS COUNTED % (AUTO) 100 %; WHITE BLOOD COUNT 8.4 10^3/uL (4.0-10.5)
[2020-09-12] MEDS: FAMOTIDINE 20 MG TABLET PO SCH ×2 (10:00→21:33)
[2020-09-12] MEDS: NORMAL SALINE 1000 ML 1,000 ML IV PRN ×2 (10:00→21:37)
[2020-09-12] MEDS: HEPARIN SOD (PORCINE) 5,000 UNIT/ML 1 ML VIAL SUBCUT SCH ×2 (10:00→21:34)
[2020-09-12 12:24] LABS: ANION GAP 13 (5-19); BLOOD UREA NITROGEN 45 mg/dL (7-20); CALCIUM 9.1 mg/dL (8.4-10.2); CARBON DIOXIDE 16 mmol/L (22-30); CHLORIDE 110 mmol/L (98-107); GLUCOSE 91 mg/dL (75-110); POTASSIUM 4.7 mmol/L (3.6-5.0)
[2020-09-12] MEDS ORDERED: CARVEDILOL 25 MG PO SCH (15:15)
--- NOTE | 2020-09-12 15:30 | PDOC PROGRESS REPORT ---
Subjective Date:: 09/12/20 Subjective:: No adverse events overnight. No new complaints. His is come to visit him and he is much more calm now. Vital signs been stable. He has been eating better. Reason For Visit: SEVERE HYPERKALEMIA,ACUTE KIDNEY INJURY,VOLUME Physical Exam Vital Signs: Temp Pulse Resp BP Pulse Ox 97.7 F 82 18 190/95 H 97 09/12/20 11:36 09/12/20 11:36 09/12/20 11:36 09/12/20 11:36 09/12/20 11:36 Intake & Output 09/11/20 09/12/20 09/13/20 06:59 06:59 06:59 Intake Total 1905 4880 480 Output Total 650 350 Balance 1905 4230 130 Weight 86.5 kg 88.1 kg General appearance: PRESENT: no acute distress, cooperative, disheveled, obese Respiratory exam: PRESENT: clear to auscultation maryellen, symmetrical, unlabored. ABSENT: accessory muscle use, chest wall tenderness, crackles, prolonged expiratory phas, rhonchi, tachypnea, wheezes Cardiovascular exam: PRESENT: RRR, +S1, +S2 Pulses: PRESENT: normal carotid pulses Vascular exam: PRESENT: normal capillary refill GI/Abdominal exam: PRESENT: normal bowel sounds, soft. ABSENT: distended, guarding, rebound, tenderness Extremities exam: ABSENT: clubbing, pedal edema Musculoskeletal exam: PRESENT: normal inspection. ABSENT: deformity Neurological exam: PRESENT: awake, oriented to person, oriented to place. ABSENT: oriented to situation Psychiatric exam: PRESENT: appropriate affect, normal mood Skin exam: PRESENT: dry, warm Results Laboratory Results: 09/12/20 07:03 09/12/20 07:03 09/12/20 09/12/20 07:03 07:03 WBC 8.4 RBC 3.74 L Hgb 11.9 L Hct 34.7 L MCV 93 MCH 31.9 MCHC 34.4 RDW 13.1 Plt Count 216 Seg Neutrophils % 56.1 Sodium 139.3 Potassium 4.7 Chloride 110 H Carbon Dioxide 16 L Anion Gap 13 BUN 45 H Creatinine 1.67 H Est GFR ( Amer) 50 L Glucose 91 Calcium 9.1 09/11/20 00:15 Creatine Kinase 125 Impressions: Chest X-Ray 09/10/20 23:00 IMPRESSION: There are no acute lung parenchymal findings. Assessment and Plan - Diagnosis (1) Acute kidney injury Is this a current diagnosis for this admission?: Yes (2) High anion gap metabolic acidosis Is this a current diagnosis for this admission?: Yes (3) Hyperkalemia Is this a current diagnosis for this admission?: Yes (4) Hypertension Is this a current diagnosis for this admission?: Yes (5) Type 2 diabetes mellitus Qualifiers: Diabetes mellitus skilled nursing insulin use: with skilled nursing use Diabetes cooper itus complication status: without complication Qualified Code(s): E11.9 - Type 2 diabetes mellitus without complications; Z79.4 - roasterman (current) use of insulin Is this a current diagnosis for this admission?: Yes (6) Volume depletion Is this a current diagnosis for this admission?: Yes - Plan Summary Summary: His potassium has come down over taking him off of Veltassa. He was on Aldactone at home and in light of his renal failure this no doubt contributed. His said that his doctor had been following his renal function for several weeks so apparently he had been having an issue for some time with his kidneys. There has been some talk of this patient having heart failure and while he may have had some diastolic dysfunction on an echocardiogram 3 years ago he shows no evidence of heart failure at this time and if it were a problem, he probably would gotten fluid overloaded with all the IV fluid he is gotten. Going to cut his IV fluids down a little bit today. We are encouraging him to eat and take oral fluids. His blood pressures have been high some going to start back his Coreg and his clonidine, which she has been on at home together and has obviously been tolerating them without any trouble. Continue to hold his Aldactone and will hold his ARB until I know what his baseline renal function is. His blood sugars have been very well controlled. - Time Time Spent with patient: 15-24 minutes Anticipated Discharge Disposition: Home, Self Care Anticipated Discharge Timeframe: within 72 hours
[2020-09-12] MEDS: CLONIDINE HCL 0.2 MG TABLET PO SCH (16:17)
[2020-09-12] MEDS: CARVEDILOL 12.5 MG TABLET PO SCH ×2 (16:18→21:33)
[2020-09-12] MEDS ORDERED: DONEPEZIL HCL 5 MG TABLET PO SCH (18:00)
[2020-09-12] MEDS ORDERED: ATORVASTATIN CALCIUM 40 MG TABLET PO SCH (22:00)
[2020-09-12] MEDS ORDERED: ATORVASTATIN CALCIUM 80 MG TABLET PO SCH (22:00)
[2020-09-13] MEDS: NORMAL SALINE 1000 ML 1,000 ML IV PRN (02:40)
[2020-09-13] MEDS: CLONIDINE HCL 0.2 MG TABLET PO SCH (05:11)
[2020-09-13 06:14] LABS: ANION GAP 9 (5-19); BLOOD UREA NITROGEN 27 mg/dL (7-20); CALCIUM 8.6 mg/dL (8.4-10.2); CARBON DIOXIDE 17 mmol/L (22-30); CHLORIDE 113 mmol/L (98-107); GLUCOSE 94 mg/dL (75-110); POTASSIUM 4.8 mmol/L (3.6-5.0)
[2020-09-13] MEDS: INSULIN REG, HUMAN 100 UNIT/ML 3 ML VIAL (PYX) SUBCUT SCH (09:42)
[2020-09-13] MEDS: FAMOTIDINE 20 MG TABLET PO SCH (09:49)
[2020-09-13] MEDS: CARVEDILOL 12.5 MG TABLET PO SCH (09:49)
[2020-09-13] MEDS: HEPARIN SOD (PORCINE) 5,000 UNIT/ML 1 ML VIAL SUBCUT SCH (09:50)
[2020-09-13] MEDS ORDERED: ASPIRIN 81 MG TABLET, ENT COATED PO SCH (10:00)
[2020-09-13 12:05] VITALS: BP 181/75
--- NOTE | 2020-09-13 17:06 | PDOC DISCHARGE SUMMARY ---
Impression - Admit/DC Date/PCP Admission Date/Primary Care Provider: 09/11/20 01:08 JOSE RAE PA-C Discharge Date: 09/13/20 - Discharge Diagnosis (1) Acute kidney injury Is this a current diagnosis for this admission?: Yes (2) High anion gap metabolic acidosis Is this a current diagnosis for this admission?: Yes (3) Hyperkalemia Is this a current diagnosis for this admission?: Yes (4) Hypertension Is this a current diagnosis for this admission?: Yes (5) Type 2 diabetes mellitus Is this a current diagnosis for this admission?: Yes (6) Volume depletion Is this a current diagnosis for this admission?: Yes - Assessment Summary: His potassium has come down over taking him off of Veltassa. He was on Aldactone at home and in light of his renal failure this no doubt contributed. His said that his doctor had been following his renal function for several weeks so apparently he had been having an issue for some time with his kidneys. There has been some talk of this patient having heart failure and while he may have had some diastolic dysfunction on an echocardiogram 3 years ago he shows no evidence of heart failure at this time and if it were a problem, he probably would gotten fluid overloaded with all the IV fluid he is gotten. Going to cut his IV fluids down a little bit today. We are encouraging him to eat and take oral fluids. His blood pressures have been high some going to start back his Coreg and his clonidine, which she has been on at home together and has obviously been tolerating them without any trouble. Continue to hold his Aldactone and will hold his ARB until I know what his baseline renal function is. His blood sugars have been very well controlled. - Additional Information Resuscitation Status: Full Code Discharge Diet: Cardiac, Diabetic Discharge Activity: Activity As Tolerated, Supervised Activity Referrals: JOSE RAE PA-C [Primary Care Provider] - Follow up as needed Home Medications: Carvedilol [Coreg 25 mg Tablet] 25 mg PO Q12 12/07/15 Atorvastatin Calcium [Lipitor 80 mg Tablet] 40 mg PO QHS tablet 12/08/15 Aspirin [Aspirin EC] 81 mg PO DAILY 01/04/17 Canagliflozin/Metformin HCl [Invokamet 150-1,000 mg Tablet] 1 tab PO BID 01/04/17 Mirabegron [Myrbetriq] 25 mg PO DAILY 01/04/17 Clonidine HCl [Catapres 0.2 mg Tablet] 0.2 mg PO Q12 #60 tablet 01/06/17 Donepezil HCl [Aricept 5 mg Tablet] 10 mg PO QPM 09/11/20 Telmisartan 80 mg PO DAILY 09/11/20 History of Present Illiness History of Present Illness: CLEMENTE BROTHERS is a 70 year old male with a history of hypertension, type 2 diabetes, CVA and dementia is brought in by his after he had a low blood pressure of 77/44 at home. His reports that he has not been able to eat in the past few weeks and has been generally feeling weak. Associated with this he had 2 episodes of watery diarrhea with associated nausea and vomiting of ingested matter. Patient states that he has been having decline in his functional status and also reports that he has lost significant weight in the past few months. Patient denies any lightheadedness, chest pain, palpitation, shortness of breath, weakness of one of his extremities, change in his speech, difficulty of swallowing, fever, cough, abdominal pain, hematochezia, melena, hematemesis, dysuria, frequency or urgency. Hospital Course Hospital Course: One of his medications was Aldactone, and this combined with some dehydration and some of his other medications he was on, especially for his diabetes, likely contributed to the worsening of his renal failure once he got a little dehydrated. The Aldactone definitely contributed to his potassium being elevated. We took him off of that completely, gave him some fluids, and some Veltassa and his potassium returned to normal. He responded very well to IV fluids. His creatinine is back down to normal. He can resume his other medications that he was on at home, with the exception of his Aldactone, his Januvia, and his insulin. His blood sugars were exceptionally well controlled here on a as needed sliding scale alone. His labs and examination were reassuring and he was discharged in stable condition. Physical Exam Vital Signs: Temp Pulse Resp BP Pulse Ox 97.6 F 52 L 17 181/75 H 100 09/13/20 13:06 09/13/20 13:06 09/13/20 13:06 09/13/20 11:36 09/13/20 13:06 Intake & Output 09/12/20 09/13/20 09/14/20 06:59 06:59 06:59 Intake Total 4880 4990 Output Total 875 975 Balance 4230 1745 Weight 88.1 kg 90.2 kg General appearance: PRESENT: no acute distress, cooperative, disheveled, obese Respiratory exam: PRESENT: clear to auscultation maryellen, symmetrical, unlabored. ABSENT: accessory muscle use, chest wall tenderness, crackles, prolonged expiratory phas, rhonchi, tachypnea, wheezes Cardiovascular exam: PRESENT: RRR, +S1, +S2 Pulses: PRESENT: normal carotid pulses Vascular exam: PRESENT: normal capillary refill GI/Abdominal exam: PRESENT: normal bowel sounds, soft. ABSENT: distended, guarding, rebound, tenderness Extremities exam: ABSENT: clubbing, pedal edema Musculoskeletal exam: PRESENT: normal inspection. ABSENT: deformity Neurological exam: PRESENT: awake, oriented to person, oriented to place. ABSENT: oriented to situation Psychiatric exam: PRESENT: appropriate affect, normal mood Skin exam: PRESENT: dry, warm Results Laboratory Results: WBC 8.4 10^3/uL (4.0-10.5) 09/12/20 07:03 RBC 3.74 10^6/uL (4.35-5.55) L 09/12/20 07:03 Hgb 11.9 g/dL (13.5-17.0) L 09/12/20 07:03 Hct 34.7 % (37.9-51.0) L 09/12/20 07:03 MCV 93 fl (80-97) 09/12/20 07:03 MCH 31.9 pg (27.0-33.4) 09/12/20 07:03 MCHC 34.4 g/dL (32.0-36.0) 09/12/20 07:03 RDW 13.1 % (11.5-14.0) 09/12/20 07:03 Plt Count 216 10^3/uL (150-450) 09/12/20 07:03 Lymph % (Auto) 31.1 % (13-45) 09/12/20 07:03 [place] % (Auto) 8.3 % (3-13) 09/12/20 07:03 Eos % (Auto) 3.6 % (0-6) 09/12/20 07:03 Baso % (Auto) 0.9 % (0-2) 09/12/20 07:03 Absolute Neuts (auto) 4.7 10^3/uL (1.7-8.2) 09/12/20 07:03 Absolute Lymphs (auto) 2.6 10^3/uL (0.5-4.7) 09/12/20 07:03 Absolute Monos (auto) 0.7 10^3/uL (0.1-1.4) 09/12/20 07:03 Absolute Eos (auto) 0.3 10^3/uL (0.0-0.6) 09/12/20 07:03 Absolute Basos (auto) 0.1 10^3/uL (0.0-0.2) 09/12/20 07:03 Seg Neutrophils % 56.1 % (42-78) 09/12/20 07:03 Sodium 139.2 mmol/L (137-145) 09/13/20 05:20 Potassium 4.8 mmol/L (3.6-5.0) 09/13/20 05:20 Chloride 113 mmol/L (98-107) H 09/13/20 05:20 Carbon Dioxide 17 mmol/L (22-30) L 09/13/20 05:20 Anion Gap 9 (5-19) 09/13/20 05:20 BUN 27 mg/dL (7-20) H 09/13/20 05:20 Creatinine 1.22 mg/dL (0.52-1.25) 09/13/20 05:20 Est GFR ( Amer) > 60 (>60) 09/13/20 05:20 Est GFR (Non-Af Amer) Cancelled 09/10/20 23:01 Est GFR (MDRD) Non-Af 59 (>60) L 09/13/20 05:20 Glucose 94 mg/dL (75-110) 09/13/20 05:20 POC Glucose 95 mg/dL (70-110) 09/13/20 11:37 Lactic Acid 1.3 mmol/L (0.7-2.1) 09/11/20 03:11 Calcium 8.6 mg/dL (8.4-10.2) 09/13/20 05:20 Total Bilirubin 0.9 mg/dL (0.2-1.3) 09/10/20 18:42 Direct Bilirubin 0.3 mg/dL (0.0-0.4) 09/10/20 18:42 Neonat Total Bilirubin Not Reportable 09/10/20 18:42 Neonat Direct Bilirubin Not Reportable 09/10/20 18:42 Neonat Indirect Bili Not Reportable 09/10/20 18:42 AST 32 U/L (17-59) 09/10/20 18:42 ALT 28 U/L (<50) 09/10/20 18:42 Alkaline Phosphatase 59 U/L (38-126) 09/10/20 18:42 Creatine Kinase 125 U/L (55-170) 09/11/20 00:15 Total Protein 7.9 g/dL (6.3-8.2) 09/10/20 18:42 Albumin 4.8 g/dL (3.5-5.0) 09/10/20 18:42 EGFR Cancelled 09/10/20 23:01 TSH 0.66 uIU/mL (0.47-4.68) 09/11/20 03:11 Urine Color YELLOW 09/10/20 23:15 Urine Appearance SLIGHTLY-CLOUDY 09/10/20 23:15 Urine pH 5.0 (5.0-9.0) 09/10/20 23:15 Ur Specific [place] 1.016 09/10/20 23:15 Urine Protein NEGATIVE mg/dL (NEGATIVE) 09/10/20 23:15 Urine Glucose (UA) >=500 mg/dL (NEGATIVE) H 09/10/20 23:15 Urine Ketones TRACE mg/dL (NEGATIVE) H 09/10/20 23:15 Urine Blood SMALL (NEGATIVE) H 09/10/20 23:15 Urine Nitrite (Reflex) NEGATIVE (NEGATIVE) 09/10/20 23:15 Urine Bilirubin NEGATIVE (NEGATIVE) 09/10/20 23:15 Urine Urobilinogen NEGATIVE mg/dL (<2.0) 09/10/20 23:15 Leukocyte Esterase Rfl NEGATIVE (NEGATIVE) 09/10/20 23:15 Urine RBC (Auto) 17 /HPF 09/10/20 23:15 U Hyaline Cast (Auto) 2 /LPF 09/10/20 23:15 Urine Bacteria (Auto) TRACE /HPF 09/10/20 23:15 Urine WBC (Reflex) 1 /HPF 09/10/20 23:15 Squamous Epi Cells Auto 13 /HPF 09/10/20 23:15 Urine Mucus (Auto) RARE /LPF 09/10/20 23:15 Urine Creatinine 100.1 mg/dL (22-328) 09/10/20 23:15 Urine Sodium 70 mmol/L (30-90) 09/10/20 23:15 Urine Ascorbic Acid NEGATIVE (NEGATIVE) 09/10/20 23:15 Impressions: Chest X-Ray 09/10/20 23:00 IMPRESSION: There are no acute lung parenchymal findings. Plan Time Spent: Greater than 30 Minutes Stroke Is this a Stroke Patient?: No Acute Heart Failure Is this a Heart Failure Patient?: No
== END 2020-09-13 13:38 | disposition home or self-care (01) | DRG 641 ==
LOC: ER 17:30 → EH 09-11 01:08 → 3S 09-11 02:51
PROVIDERS: ADMIT Student in an Organized Health Care Education/Training Program; ATTEND Family Medicine
DX: E87.5 Hyperkalemia (principal); N17.9 Acute kidney failure, unspecified; I50.32 Chronic diastolic (congestive) heart failure; E87.2 Acidosis; F03.90 Unspecified dementia, unspecified severity, without behavioral disturbance, psychotic disturbance, mood disturbance, and anxiety; E86.0 Dehydration; E78.5 Hyperlipidemia, unspecified; I11.0 Hypertensive heart disease with heart failure; E86.9 Volume depletion, unspecified; G47.30 Sleep apnea, unspecified; D72.829 Elevated white blood cell count, unspecified; E11.649 Type 2 diabetes mellitus with hypoglycemia without coma; Z79.899 Other long term (current) drug therapy; Z86.73 Personal history of transient ischemic attack (TIA), and cerebral infarction without residual deficits; Z90.79 Acquired absence of other genital organ(s); Z87.891 Personal history of nicotine dependence; Z82.49 Family history of ischemic heart disease and other diseases of the circulatory system; Z83.3 Family history of diabetes mellitus; Z80.3 Family history of malignant neoplasm of breast; Z79.84 Long term (current) use of oral hypoglycemic drugs; Z79.82 Long term (current) use of aspirin; Z79.4 Long term (current) use of insulin
CPT/HCPCS: 36415; 71045; 80048; 80053; 81001; 82550; 82570; 82962; 83605; 84300; 84443; 85025; 87040; 93005; 93010; 96361; 96374; 96375; 99285; J0610; J1644; J1815; J3490; J7030